=== PATIENT | male | born 1970 | race Caucasian/White ===

== ENCOUNTER → 2021-05-18 12:58 | Outpatient (BNVA) | payer BC, SELFPAY | PROVIDERS: PCP Internal Medicine; Visit Provider Nurse Practitioner ==

== ENCOUNTER → 2021-06-18 16:06 | Outpatient (BNVA) | payer BC, SELFPAY | PROVIDERS: PCP Internal Medicine; Visit Provider Nurse Practitioner ==

== ENCOUNTER → 2021-07-06 16:09 | Outpatient (BNVA) | payer BC, SELFPAY | PROVIDERS: PCP Internal Medicine; Visit Provider Nurse Practitioner ==

== ENCOUNTER → 2021-08-06 15:48 | Outpatient (BNVA) | payer BC, SELFPAY | PROVIDERS: PCP Internal Medicine; Visit Provider Nurse Practitioner ==

== ENCOUNTER → 2021-08-25 15:00 | Outpatient (BNVA) | payer BC, SELFPAY | PROVIDERS: PCP Family Medicine; Visit Provider Nurse Practitioner Family ==

== ENCOUNTER → 2021-09-14 16:05 | Outpatient (BNVA) | payer BC, SELFPAY | PROVIDERS: PCP Family Medicine; Visit Provider Nurse Practitioner ==

== ENCOUNTER 2021-09-16 | Outpatient (REF) | payer BC, SELFPAY ==
[2021-09-21 11:08] LABS: FIT Int Ctl YES; FIT1 NEGATIVE (NEGATIVE); FIT2 NEGATIVE (NEGATIVE)
== END 2021-09-16 00:01 | disposition home or self-care (01) ==
LOC: HO.LNP
PROVIDERS: Visit Provider Nurse Practitioner
DX: Z12.11 Encounter for screening for malignant neoplasm of colon (principal)
CPT/HCPCS: 82274

== ENCOUNTER → 2021-09-30 16:18 | Outpatient (BNVA) | payer BC, SELFPAY | PROVIDERS: PCP Family Medicine; Referring Provider Family Medicine; Visit Provider Nurse Practitioner | DX: Z13.89 Encounter for screening for other disorder (principal) ==

== ENCOUNTER → 2021-11-11 16:11 | Outpatient (BNVA) | payer BC, SELFPAY | PROVIDERS: PCP Family Medicine; Referring Provider Family Medicine; Visit Provider Nurse Practitioner | DX: Z13.89 Encounter for screening for other disorder (principal) ==

== ENCOUNTER → 2021-11-24 15:25 | Outpatient (BNVA) | payer BC, SELFPAY | PROVIDERS: PCP Family Medicine; Visit Provider Nurse Practitioner Family | DX: G20 Parkinson's disease (principal) ==

== ENCOUNTER 2022-01-05 12:50 | Outpatient (REF) | payer BC, SELFPAY ==
--- NOTE | 2022-01-05 12:55 | EEG_ITS ---
This is a 16-channel EEG with an EKG lead. The patient is reported awake during the tracing. Background EEG rhythm is about 10 hertz, 5 to 30 microvolt posteriorly and lower amplitude fast anteriorly. Some lead and muscle artifacts are noted. Photic stimulation is unremarkable. Hyperventilation is not performed. Cardiac lead does not reveal any significant abnormality. No sharp wave spikes or paroxysmal tendency noted. IMPRESSION: No significant abnormality noted on this EEG. MD BRUCE Morgan/ERIC / [id number]
== END 2022-01-05 12:51 | disposition home or self-care (01) ==
LOC: HO.NEURO 12:50
PROVIDERS: PCP Family Medicine; Visit Provider Nurse Practitioner Family
DX: R55 Syncope and collapse (principal); W19.XXXA Unspecified fall, initial encounter
CPT/HCPCS: 95816

== ENCOUNTER → 2022-02-14 14:25 | Outpatient (BNVA) | payer BC, SELFPAY | PROVIDERS: PCP Family Medicine; Referring Provider Nurse Practitioner; Visit Provider Internal Medicine | DX: R55 Syncope and collapse (principal) | CPT/HCPCS: 93005 ==

== ENCOUNTER → 2022-03-18 13:46 | Outpatient (REF) | payer BC, SELFPAY ==
--- NOTE | 2022-03-18 13:49 | CA_ITS ---
Transthoracic Echocardiogram Amended Patient (Last, First, Middle): Rakan Grijalva, Gender: Male Date of : 1970 Age: 52 Procedure Date: 03/18/2022 Procedure Type: Transthoracic Echocardiogram Location: OP Height: 167.64 cm Weight: 67.59 kg BSA: 1.76 m2 Heart Rate: 81 bpm BP: 130 / 90 mmHg Inside Sales Territory Manager: KOLE [place] MD: Monroe Mclean MD Sewing Inspector: Jaya Perez MD Symptoms: R55 - Syncope and collapse Study Quality: Fair ECG Rhythm: Sinus Conclusions: - 1. Mildly reduced LV systolic function with LVEF of 45-50% with grade 1 diastolic dysfunction 2. Normal cardiac valvular Doppler 3. No gross pericardial effusion Findings Left Ventricle Normal left ventricular size and systolic function. The visually estimated ejection fraction is between 45-50%. Spectral Doppler is indicative of an impaired relaxation filling pattern. E/E prime ratio is <8, consistent with normal filling pressures. Evidence suggests grade I (mild) diastolic dysfunction. Peak GLS is -14.6%, which is reduced. Right Ventricle Normal right ventricular cavity size and systolic function. Atria The left atrium is normal in size. Interatrial shunt cannot be excluded. The right atrium is normal in size. Aortic Valve The aortic valve structure and function is likely normal. There is no aortic valve stenosis. There is no aortic valve regurgitation. Mitral Valve Likely normal mitral valve structure and function. There is trace mitral valve regurgitation. There is no mitral valve stenosis. Pulmonic Valve The pulmonic valve was not well visualized. Tricuspid Valve Likely normal tricuspid valve structure and function. Tricuspid regurgitation envelope is inadequate for calculation of right ventricular systolic pressure. Normal right atrial pressure. Great Vessels All visible segments of the aorta are normal in size. The pulmonary artery was not well visualized. Venous The inferior vena cava is normal in size and collapses greater than 50% with inspiration. Pericardium/Pleural There is no evidence of pericardial effusion. Prior Study Comparison No prior study available for comparison. Recommendations, Care & Conclusions Recommend contrast in the future to improve endocardial definition. Measurements 2D Linear Measurements IVSd: 0.96 0.6-0.9/0.6-1.0 cm LVIDd: 3.69 3.9-5.3/4.2-5.9 cm LVIDd Index: 2.10 2.4-3.2/2.2-3.1 cm/m2 LVIDs: 2.42 2.0-3.6 cm LVPWd: 0.89 0.7-1.1 cm LA Diam: 3.60 2.7-3.8/3.0-4.0 cm LAIDs Index: 2.05 1.5-2.3 cm/m2 LV Mass: 124.68 67-162/88-224 g LV Mass Index: 70.84 43-95/49-115 g/m2 LVOT Diam: 2.00 3.0+(-)1.3 cm 2D Volumes LA Vol: 24.00 2D Systolic Function EF 4C: 40.80 >55% EF 2C: 49.10 >55% Mitral Valve MV Pk E: 0.62 MV PK A: 0.76 MV Decel Time: 224.00 E/A: 0.80 E'Lateral: 7.94 E'Medial: 5.77 E/E' Med: 10.70 E/E' Lat: 7.80 PHT: 66.00 MVA PHT: 3.33 Decel [place]: 2.75 Aortic Valve AoV Pk Tereso: 1.16 AoV Mn Tereso: 0.84 AoV VTI: 0.21 AoV Pk Grad: 5.00 Aov Mn Grad: 3.00 JENN Cont.VTI: 2.56 LVOT LVOT Pk Tereso: 0.92 LVOT Mn Tereso: 0.68 LVOT VTI: 0.17 LVOT Pk Grad: 3.00 LVOT Mn Grad: 2.00 LVOT Diam: 2.00 LVOT Area: 3.14 Diastolic Function MV Pk E: 0.62 MV Pk A: 0.76 E/A: 0.80 E'Medial: 5.77 E/E' Med: 10.70 E' Laterial: 7.94 E/E' Lat: 7.80 Right Ventricle TAPSE (mm): 18.90 TVS' Tereso: 8.70 Tricuspid Valve RA Press: 3.00 Great Vessels Aorta Sinus of Valsalva: 3.20 2.0-3.5 cm Ao Asc: 3.00 2.1-3.4 cm Pulmonary Valve PV Pk Tereso: 0.83 Peak PV Grad: 3.00 Updated in Other Vendor System with Status of Final Jaya Perez MD electronically signed on 03/20/2022 10:21:20 AM with status of Final
== END ==
LOC: HO.CARD 13:46
PROVIDERS: Visit Provider Internal Medicine
DX: R55 Syncope and collapse (principal)
CPT/HCPCS: 93306; 93356

== ENCOUNTER 2022-05-02 15:42 | Outpatient (REF) | payer BC, SELFPAY ==
[2022-05-02 15:53] LABS: MANUAL DIFF FLAG NO
[2022-05-02 16:12] LABS: Basophils Percent Auto 0.5 % (0-2); Eosinophils Absolute Auto 0.3 X10*3/uL (0.0-0.4); Hematocrit 37.5 % (42.0-52.0); Hemoglobin 12.6 g/dl (14.0-18.0); Imm Gran Abs Auto 0.03 X10*3/uL (0.00-0.03); Imm Gran Pct Auto 0.4 % (0.0-0.4); Lymphocytes Absolute Auto 2.7 X10*3/uL (1.2-4.9); Lymphocytes Percent Auto 32.1 % (20-40); Mean Corpuscular HGB Conc 33.6 g/dl (31.0-36.0); Mean Corpuscular Hemoglobin 26.6 pg (27.0-33.0); Mean Corpuscular Volume 79.3 fL (80.0-98.0); Mean Platelet Volume 8.9 fL (9.4-12.4); Monocytes Absolute Auto 0.8 X10*3/uL (0.1-1.2); Monocytes Percent Auto 8.9 % (2-11); Neutrophils Absolute Auto 4.6 x10*3/uL (2.0-8.3); Neutrophils Percent Auto 54.1 % (45-73); Platelet Count 399 X10*3/uL (160-400); Red Blood Count 4.73 X10*6/uL (4.60-5.80); Red Cell Distribution Width 15.7 % (11.0-16.0); White Blood Count 8.4 X10*3/uL (4.8-10.8)
[2022-05-02 16:30] LABS: Alanine Aminotransferase 11 U/L (0-40); Albumin Level 4.7 g/dL (3.5-5.0); Alkaline Phosphatase 97 U/L (39-117); Anion Gap 16 (12-20); Aspartate Amino Transferase 16 U/L (5-37); Bilirubin Total 0.3 mg/dL (0.0-1.0); Blood Urea Nitrogen 10 mg/dL (9-16); Carbon Dioxide 27 mmol/L (22-29); Chloride 99 mmol/L (96-108); Estimated Glomerular Filt Rate > 60; Glucose Random 91 mg/dL (60-115); Iron 74 mcg/dL (45-160); Percent Iron Saturation 18 % (15-50); Potassium 3.8 mmol/L (3.3-5.1); Sodium 138 mmol/L (135-145); Total Iron Binding Capacity 403 mcg/dL (228-428); Total Protein 7.4 g/dL (6.5-8.0); Unsaturated Iron Binding 329 ug/dL
[2022-05-02 16:52] LABS: Ferritin 39 ng/mL (20-250)
== END 2022-05-02 15:43 | disposition home or self-care (01) ==
LOC: HO.LAB 15:42
PROVIDERS: PCP Family Medicine; Visit Provider Nurse Practitioner Family
DX: R53.83 Other fatigue (principal); U09.9 Post COVID-19 condition, unspecified; D64.9 Anemia, unspecified
CPT/HCPCS: 36415; 80053; 82728; 83540; 85025

== ENCOUNTER → 2022-07-12 12:57 | Outpatient (BNVA) | payer BC, SELFPAY | PROVIDERS: PCP Family Medicine; Visit Provider Nurse Practitioner | DX: K21.9 Gastro-esophageal reflux disease without esophagitis (principal) ==

== ENCOUNTER → 2022-08-01 15:32 | Outpatient (BNVA) | payer BC, SELFPAY | PROVIDERS: PCP Family Medicine; Visit Provider Nurse Practitioner Family | DX: Z13.89 Encounter for screening for other disorder (principal) ==

== ENCOUNTER → 2022-09-21 15:46 | Outpatient (REF) | payer BC, SELFPAY ==
--- NOTE | 2022-09-21 15:55 | CA_ITS ---
Transthoracic Echocardiogram Patient (Last, First, Middle): Rakan Grijalva, Gender: Male Date of : 1970 Age: 52 Procedure Date: 09/21/2022 Procedure Type: Transthoracic Echocardiogram Location: OP Height: 170.18 cm Weight: 69.4 kg BSA: 1.80 m2 Heart Rate: bpm BP: 122 / 68 mmHg School Bus Attendant: Referring MD: Monroe Mclean MD Symptoms: I42.9 - Cardiomyopathy, unspecified Study Quality: Adequate ECG Rhythm: Sinus Conclusions: - The left ventricular systolic function is low normal. The visually estimated ejection fraction is between 50-55% (in some views, appears 55-60%). Findings Procedure Information Contrast agent, definity, is being given per protocol without apparent complications. Left Ventricle Normal left ventricular cavity size. There is normal left ventricular wall thickness. The left ventricular systolic function is low normal. The visually estimated ejection fraction is between 50-55%. There is no evidence of regional wall motion abnormalities. LV peak GLS -15.1%. Right Ventricle Normal right ventricular cavity size and systolic function. Venous The inferior vena cava was not well visualized. The inferior vena cava is normal in size. Prior Study Comparison Changes noted compared to prior study dated: 03/26/2022. Possibly slightly higher LVEF, but could also be inter-observer variability. Measurements 2D Linear Measurements IVSd: 0.75 0.6-0.9/0.6-1.0 cm LVIDd: 4.14 3.9-5.3/4.2-5.9 cm LVIDd Index: 2.30 2.4-3.2/2.2-3.1 cm/m2 LVIDs: 2.89 2.0-3.6 cm LVPWd: 0.86 0.7-1.1 cm LV Mass: 123.81 67-162/88-224 g LV Mass Index: 68.79 43-95/49-115 g/m2 LVOT Diam: 2.00 3.0+(-)1.3 cm 2D Systolic Function EF 4C: 52.10 >55% EF 2C: 60.40 >55% EF BiP: 52.10 >55% LVOT LVOT Pk Tereso: 0.93 LVOT Mn Tereso: 0.61 LVOT VTI: 0.19 LVOT Pk Grad: 3.00 LVOT Mn Grad: 2.00 LVOT Diam: 2.00 LVOT Area: 3.14 Right Ventricle TAPSE (mm): 25.00 TVS' Tereso: 10.00 Updated in Other Vendor System with Status of Final Monroe Mclean MD electronically signed on 09/23/2022 12:24:49 PM with status of Final
== END ==
LOC: HO.CARD 15:46
PROVIDERS: PCP Family Medicine; Visit Provider Internal Medicine
DX: I42.9 Cardiomyopathy, unspecified (principal)
CPT/HCPCS: 93308; 93356; Q9957

== ENCOUNTER → 2022-10-07 16:06 | Outpatient (BNVA) | payer BC, SELFPAY | PROVIDERS: PCP Family Medicine; Visit Provider Nurse Practitioner | DX: Z13.89 Encounter for screening for other disorder (principal) ==

== ENCOUNTER → 2022-11-28 15:30 | Outpatient (BNVA) | payer BC, SELFPAY | PROVIDERS: PCP Family Medicine; Visit Provider Nurse Practitioner Family ==

== ENCOUNTER 2023-04-04 16:04 | Outpatient (AMB) | payer BC, SELFPAY ==
[2023-04-04 16:07] VITALS: BP 127/75; PULSE 88; BMI 26.2
--- NOTE | 2023-04-04 16:07 | MHC.OFFVIS ---
Intake Vital Signs 04/04/23 16:07 Height 5 ft 7 in Weight 167 lb 8.821 oz BMI 26.2 BP 127/75 Blood Pressure Location Lt brachial Position Sitting Pulse 88 Intake Visit Reasons: 6month f/u Intake Note: Rakan presents in the office as a 6 month follow up for GERD and CIC. CC: Patient reports doing well and denies having any new GI concerns today. 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 He continues to do well. He has gained almost 10 lbs since we first met!! He continues on the Reglan 10 mg 4 times a day along with the Linzess 290. He has not needed to use the hyoscyamine. His appetite is good any has an almost normal bowel schedule and he is extremely happy with this. Whenever was causing his vomiting at the prior visit seems to have subsided and could have been a passing GI virus. ROV 6 mos. (2) GERD (gastroesophageal reflux disease): Code(s): K21.9 - Gastro-esophageal reflux disease without esophagitis (3) IBS (irritable bowel syndrome): Code(s): K58.9 - Irritable bowel syndrome without diarrhea (4) Chronic idiopathic constipation: Code(s): K59.04 - Chronic idiopathic constipation Medications: Refilled linaclotide (Linze ss) 290 mcg PO QAM 90 days 90 caps 3RF K59.04 - Chronic i diopathic constipa tion metoclopramide HCl (Reglan) 10 mg PO QIDACHS 360 tabs 2RF K59.04 - Chronic i diopathic constipa tion, K59.9 - Func tional intestinal disorder, unspecif ied omeprazole 20 mg PO BID 90 d ays 180 caps 3RF K21.9 - Gastro-eso phageal reflux dis ease without esoph agitis TODAY'S VISIT He is here today with his as usual. She is quite supportive. He continues to do well. He continues on the Reglan 10 mg 4 times a day along with the Linzess 290. He has not needed to use the hyoscyamine. The omeprazole 20 mg twice a day continues to control his GERD. ROV 6 mos. [facility] Medical History Benign tumor of skin of umbilicus Anemia Hypersomnia Atypical parkinsonism Surgical History Hx of colonoscopy History of esophagogastroduodenoscopy (EGD) Previous back surgery H/O: knee surgery Family History Mother Asthma Tremors of nervous system Arthritis Father Heart disease Gout Type II diabetes mellitus Brother Thyroid disease Parkinsons Gout Type II diabetes mellitus Paternal Aunt Cancer Paternal Grandfather Cancer Paternal Grandmother Cancer Sister Asthma Bipolar 1 disorder Social History Household Members: Spouse Alcohol intake: never Patient Tobacco Use Status: Former Tobacco user Tobacco use type: Smokeless Tobacco e-Cigarette/Vaping Use: Currently Using Review of Systems Const Denies fatigue, Denies fever(s), Denies night sweats, Denies poor appetite and Denies weight loss ENT Reports Normal hearing present, Denies dental pain, Denies dysphagia, Denies hearing loss, Denies mouth pain, Denies odynophagia, Reports disequilibrium, Denies throat swelling, Denies tongue swelling and Reports other (Dentition adequate) Card Reports no additional complaints Resp Reports no additional complaints GI Denies abdominal pain, Denies melena, Reports bloating, Denies hematochezia, Reports constipation, Denies GI cramping, Denies dysphagia, Denies excessive flatus, Denies early satiety, Reports heartburn, Denies diarrhea, Reports nausea, Denies odynophagia, Denies vomiting and Denies hematemesis Musc Reports stiffness Skin/Breast Denies pruritus, Denies lesions, Denies rash and Denies jaundice Neuro Reports Normal hearing present, Denies Abnormal speech present, Reports tremor(s) and Reports disequilibrium Endo Denies fatigue Aller/Immun Denies throat swelling and Denies tongue swelling Physical Exam Vital Signs: Last Vital Signs Pulse 88 04/04/23 16:07 BP 127/75 04/04/23 16:07 BMI result Body Mass Index 26.2 Const General: cooperative, no acute distress, well developed and well groomed Nutritional Appearance: average body habitus and well nourished Orientation/consciousness: oriented to person, oriented to place and oriented to time Limitations: No language barrier HEENT Head: Yes normocephalic and Yes atraumatic Eyes General: appearance normal, both eyes and all related structures Pupils: Equal, round and reactive pupils present Neck Neck: Yes normal visual inspection and Yes no lymphadenopathy Thyroid: Thyroid normal Resp Effort & Inspection: normal respiratory effort and able to speak in complete sentences Auscultation: clear to auscultation bilaterally Cardio Rate: regular rate Rhythm: regular rhythm Heart sounds: Normal, physiologic split S2 sound present Peripheral pulses: radial pulses present and posterior tibial pulses present GI Inspection: No distended and No Abdominal panniculus present Palpation (GI): Soft to palpation, nontender, no guarding, not rigid and No hepatosplenomegaly present Percussion: Yes normal to percussion Auscultation: normal bowel sounds Rectal Exam - Male: Yes deferred Skin General skin exam: no rashes or lesions noted, turgor normal, skin not dry, no jaundice, No spider nevi and no striae Rashes: no rashes Nails: normal Neuro General: oriented to person, oriented to place and oriented to time Cranial nerves: Yes Equal, round and reactive pupils present and Yes Normal hearing present Speech: No Abnormal speech present Extrem General: Yes normal to inspection, No clubbing, No cyanosis and No edema Psych Appearance: grossly normal and well kempt Mental Status: mental status grossly normal Speech and movement: Normal speech and movement present Affect: normal affect Attitude: cooperative Thought process: Normal thought process present and not confabulating Thought content: Normal thought content present Insight: Fair insight present (Psych) Judgement: Fair judgement present (Psych) Assessment & Plan Assessment & Plan (1) Chronic idiopathic constipation: Code(s): K59.04 - Chronic idiopathic constipation Plan: He is here today with his as usual. She is quite supportive. He continues to do well. He continues on the Reglan 10 mg 4 times a day along with the Linzess 290. He has not needed to use the hyoscyamine. The omeprazole 20 mg twice a day continues to control his GERD. ROV 6 mos. (2) Small bowel motility disorder: Code(s): K59.9 - Functional intestinal disorder, unspecified (3) IBS (irritable bowel syndrome): Code(s): K58.9 - Irritable bowel syndrome without diarrhea (4) GERD (gastroesophageal reflux disease): Code(s): K21.9 - Gastro-esophageal reflux disease without esophagitis (5) Parkinsonism: Comment: likely secondary to TCE exposure Negative Rocío scan. Code(s): G20 - Parkinson's disease Medications: New metoclopramide HCl (Reglan) 10 mg PO QIDACHS 120 tabs 6RF K59.9 - Functional intestinal disorder, unspecified, K59.04 - Chronic idiopathic constipation Refilled linaclotide (Linzess) 290 mcg PO QAM 90 caps 3RF 90 days K59.04 - Chronic idiopathic constipation omeprazole 20 mg PO BID 180 caps 3RF 90 days K21.9 - Gastro-esophageal reflux disease without esophagitis Coding Level of Care Code Est Pt Level 3 (06853) Diagnoses Chronic idiopathic constipation K59.04 Small bowel motility disorder K59.9 IBS (irritable bowel syndrome) K58.9 GERD (gastroesophageal reflux disease) K21.9 Parkinsonism G20
== END 2023-04-06 07:59 | disposition home or self-care (01) ==
PROVIDERS: PCP Family Medicine; Visit Provider Nurse Practitioner
DX: K59.04 Chronic idiopathic constipation (principal); K59.9 Functional intestinal disorder, unspecified; K58.9 Irritable bowel syndrome, unspecified; K21.9 Gastro-esophageal reflux disease without esophagitis; G20 Parkinson's disease
CPT/HCPCS: 99213

== ENCOUNTER → 2023-04-04 16:04 | Outpatient (BNVA) | payer BC, SELFPAY | PROVIDERS: PCP Family Medicine; Visit Provider Nurse Practitioner ==

== ENCOUNTER 2023-05-02 15:20 | Outpatient (AMB) | payer BC, SELFPAY ==
--- NOTE | 2023-05-02 15:24 | A.OFFVIS_ITS ---
Intake Vital Signs 05/02/23 15:26 Weight 169 lb 8 oz BP 110/74 Blood Pressure Location Lt brachial Pulse 96 Pulse Source Pulse Oximeter Pulse Oximetry (%) 98 Oxygen Delivery Method Room Air Intake Visit Reasons: 5M follow up-Confirmed Intake Note: Fup Hypersomnia/Parkinsonism , pt states nothing has changed since last OV Allergies Penicillins Allergy (Mild, Verified 05/02/23 15:29) Unknown Medication List - Last Reconciled 05/02/23 by ROSA Foster armodafinil 250 mg PO QAM 90 days carbidopa-levodopa 25-100 mg 1 tab QID, may take 2 tabs qhs orally, max 6 tabs per day; 90 days cholecalciferol (vitamin D3) 25 mcg PO DAILY diphenhydramine HCl (Benadryl) 25 mg PO BEDTIME PRN duloxetine 60 mg PO DAILY 90 days duloxetine (Cymbalta) 30 mg PO DAILY 90 days hyoscyamine sulfate 0.125 mg sublingual QID PRN linaclotide (Linzess) 290 mcg PO QAM 90 days metoclopramide HCl (Reglan) 10 mg PO QIDACHS omeprazole 20 mg PO BID 90 days rasagiline 1 mg PO DAILY 90 days HPI HPI Comments History of Present Illness Details 53-yr-old male presents for f/u visit, a ccompanied by his . Is taking CD-LD 2 tabs qam and then 1 tab TID. He is now noticing when it is working. Ind w/ ADLs. Maybe a bit more difficulty doing buttons or fine motor skills. Tremors stable. No falls. He feels he is more prone to losing balance to the right or forward. No recent syncope. GI s/s and Constipation are stable on Linzess- has daily BM. He has been taking his Hyoscyamine very rarely. His hot flashes have not been as bad. Seem to be better when CD-LD is effective. He has good and bad days in terms of his energy level. Anxiety- stable. ? PFSH Medical History Benign tumor of skin of umbilicus Anemia Hypersomnia Atypical parkinsonism Surgical History Hx of colonoscopy History of esophagogastroduodenoscopy (EGD) Previous back surgery H/O: knee surgery Family History Mother Asthma Tremors of nervous system Arthritis Father Heart disease Gout Type II diabetes mellitus Brother Thyroid disease Parkinsons Gout Type II diabetes mellitus Paternal Aunt Cancer Paternal Grandfather Cancer Paternal Grandmother Cancer Sister Asthma Bipolar 1 disorder Social History Household Members: Spouse Alcohol intake: never Patient Tobacco Use Status: Former Tobacco user Tobacco use type: Smokeless Tobacco e-Cigarette/Vaping Use: Currently Using Review of Systems Const All systems reviewed & are unremarkable except as noted in HPI and below Physical Exam Vital Signs: Last Vital Signs Pulse 96 05/02/23 15:26 BP 110/74 05/02/23 15:26 Pulse Ox 98 05/02/23 15:26 Oxygen Delivery Method Room Air 05/02/23 15:26 Const General: cooperative and no acute distress Resp Effort & Inspection: normal respiratory effort and able to speak in complete sentences Neuro Other: Expression: Mild decreased expression Voice: Soft Tremor: Mild BUE R > L postural tremor Tone: Mild BUE tone. Dyskinesia: None FFM: Mild bradykinesia Foot taps: Mild bradykinesia Gait: Slight stoop, decreased arm swing, short steps, steady gait Psych: Pleasant affect General: patient oriented x3 Assessment & Plan Assessment & Plan (1) Parkinsonism: Comment: likely secondary to TCE exposure Negative Rocío scan. Code(s): G20 - Parkinson's disease (2) Hypersomnia: Code(s): G47.10 - Hypersomnia, unspecified (3) DRE (generalized anxiety disorder): Code(s): F41.1 - Generalized anxiety disorder Plan Continue Cymbalta 90 mg qd- anxiety is significantly reduced since he started Cy mbalta. Continue Azilect 1 mg qd. Continue Sinemet 25-100 mg 1 tab qid- may take 2 tabs qhs. Continue Armodafinil 250mg qam. Try to not sleep in too late in am, but may continue early timed daytime naps. Continue regular physical activity. f/u in 4-5 months or sooner prn. Medications: Refilled armodafinil 250 mg PO QAM 90 days 90 tabs 1RF carbidopa-levodopa 25-100 mg 1 tab QID, may take 2 tabs qhs orally, max 6 tabs per day; 90 days 540 tabs 3RF Coding Level of Care Code Est Pt Level 4 (15297) Diagnoses Parkinsonism G20 Hypersomnia G47.10 DRE (generalized anxiety disorder) F41.1
[2023-05-02 15:26] VITALS: BP 110/74; PULSE 96; O2SAT 98
== END 2023-05-02 16:12 | disposition home or self-care (01) ==
PROVIDERS: Visit Provider Nurse Practitioner Family
DX: G20.C Parkinsonism, unspecified (principal); G47.10 Hypersomnia, unspecified; F41.1 Generalized anxiety disorder
CPT/HCPCS: 99214

== ENCOUNTER → 2023-05-02 15:20 | Outpatient (BNVA) | payer BC, SELFPAY | PROVIDERS: Visit Provider Nurse Practitioner Family | DX: K58.9 Irritable bowel syndrome, unspecified (principal); K59.9 Functional intestinal disorder, unspecified; K59.04 Chronic idiopathic constipation ==

== ENCOUNTER → 2023-09-07 14:56 | Outpatient (REF) | payer BC, SELFPAY ==
--- NOTE | 2023-09-07 15:12 | CA_ITS ---
Transthoracic Echocardiogram Patient (Last, First, Middle): Rakan Grijalva, Gender: Male Date of : 1970 Age: 53 Procedure Date: 09/07/2023 Procedure Type: Transthoracic Echocardiogram Location: OP Height: 167.64 cm Weight: 76.2 kg BSA: 1.86 m2 Heart Rate: bpm BP: 128 / 86 mmHg Bucket Operator: TO Referring MD: Magali Montenegro NP Symptoms: I42.9 - Cardiomyopathy, unspecified Study Quality: Fair/Contrast Conclusions: - 1. Normal LV ejection fraction of 60 65% with grade 1 diastolic dysfunction 2. Normal cardiac valvular Doppler 3. No gross pericardial effusion Findings Procedure Information Contrast agent, definity, is being given per protocol without apparent complications. Left Ventricle Normal left ventricular size, thickness, and systolic function. The visually estimated ejection fraction is between 60-65%. Spectral Doppler is indicative of an impaired relaxation filling pattern. E/E prime ratio is <8, consistent with normal filling pressures. Evidence suggests grade I (mild) diastolic dysfunction. There is mild septal asymmetric hypertrophy. Right Ventricle Normal right ventricular cavity size and systolic function. Atria Both atria are normal in size. Interatrial shunt cannot be excluded. Aortic Valve The aortic valve structure and function is likely normal. There is no aortic valve stenosis. There is no aortic valve regurgitation. Mitral Valve Normal mitral valve structure and function. There is trace mitral valve regurgitation. There is no mitral valve stenosis. Pulmonic Valve The pulmonic valve is likely normal. Tricuspid Valve Normal tricuspid valve structure. Tricuspid regurgitation envelope is inadequate for calculation of right ventricular systolic pressure. Normal right atrial pressure. Great Vessels The pulmonary artery was not well visualized. There is no dilatation of the ascending aorta measuring 3.20 cm. Venous The inferior vena cava is normal in size and collapses greater than 50% with inspiration. Pericardium/Pleural There is no evidence of pericardial effusion. Prior Study Comparison No significant change compared to prior study dated: 09/21/2022. Measurements 2D Linear Measurements IVSd: 1.22 0.6-0.9/0.6-1.0 cm LVIDd: 3.91 3.9-5.3/4.2-5.9 cm LVIDd Index: 2.10 2.4-3.2/2.2-3.1 cm/m2 LVIDs: 2.29 2.0-3.6 cm LVPWd: 0.90 0.7-1.1 cm LA Diam: 3.20 2.7-3.8/3.0-4.0 cm LAIDs Index: 1.72 1.5-2.3 cm/m2 LV Mass: 165.63 67-162/88-224 g LV Mass Index: 89.05 43-95/49-115 g/m2 LVOT Diam: 2.20 3.0+(-)1.3 cm 2D Systolic Function EF 4C: 61.80 >55% Mitral Valve MV Pk E: 0.64 MV PK A: 0.52 MV Decel Time: 152.00 E/A: 1.20 E'Lateral: 8.59 E'Medial: 6.64 E/E' Med: 9.60 E/E' Lat: 7.40 PHT: 44.00 MVA PHT: 5.00 Decel [place]: 4.21 Aortic Valve AoV Pk Tereso: 1.35 AoV Mn Tereso: 0.91 AoV VTI: 0.24 AoV Pk Grad: 7.00 Aov Mn Grad: 4.00 JENN Cont.VTI: 2.48 LVOT LVOT Pk Tereso: 0.91 LVOT Mn Tereso: 0.58 LVOT VTI: 0.15 LVOT Pk Grad: 3.00 LVOT Mn Grad: 2.00 LVOT Diam: 2.20 LVOT Area: 3.80 Diastolic Function MV Pk E: 0.64 MV Pk A: 0.52 E/A: 1.20 E'Medial: 6.64 E/E' Med: 9.60 E' Laterial: 8.59 E/E' Lat: 7.40 Right Ventricle TAPSE (mm): 24.30 TVS' Tereso: 13.20 Tricuspid Valve RA Press: 3.00 Great Vessels Aorta Sinus of Valsalva: 3.41 2.0-3.5 cm Ao Asc: 3.20 2.1-3.4 cm Ao Arch: 2.70 Updated in Other Vendor System with Status of Final Jaya Perez MD electronically signed on 09/08/2023 2:02:53 PM with status of Final
== END ==
LOC: HO.CARD 14:56
PROVIDERS: PCP Internal Medicine; Visit Provider Nurse Practitioner
DX: I42.9 Cardiomyopathy, unspecified (principal)
CPT/HCPCS: 93306; Q9957

== ENCOUNTER → 2023-09-07 15:12 | Outpatient (BNV) | payer BC, SELFPAY | PROVIDERS: PCP Internal Medicine; Visit Provider Internal Medicine Cardiovascular Disease | DX: I42.9 Cardiomyopathy, unspecified (principal) | CPT/HCPCS: 93306 ==

== ENCOUNTER 2023-09-26 15:04 | Outpatient (AMB) | payer BC, SELFPAY ==
[2023-09-26 15:13] VITALS: BP 130/78; PULSE 78; BMI 26.2
--- NOTE | 2023-09-26 15:13 | MHC.OFFVIS ---
Intake Vital Signs 09/26/23 15:13 Height 5 ft 7 in Weight 167 lb 8.821 oz BMI 26.2 BP 130/78 Blood Pressure Location Lt brachial Position Sitting Pulse 78 Pulse Source Monitor Intake Visit Reasons: F/Up and echo repeat 1 year Intake Note: follow up after ECHO Allergies Penicillins Allergy (Mild, Verified 09/26/23 15:36) Unknown Medication List - Last Reconciled 09/26/23 by Magali Montenegro NP armodafinil 250 mg PO QAM 90 days carbidopa-levodopa 25-100 mg 1 tab QID, may take 2 tabs qhs orally, max 6 tabs per day; 90 days cholecalciferol (vitamin D3) 25 mcg PO DAILY diphenhydramine HCl (Benadryl) 25 mg PO BEDTIME PRN duloxetine 60 mg PO DAILY 90 days duloxetine (Cymbalta) 30 mg PO DAILY 90 days hyoscyamine sulfate 0.125 mg sublingual QID PRN linaclotide (Linzess) 290 mcg PO QAM 90 days metoclopramide HCl (Reglan) 10 mg PO QIDACHS omeprazole 20 mg PO BID 90 days rasagiline 1 mg PO DAILY 90 days HPI HPI Comments History of Present Illness Details 53-year-old male presents today for a follow-up after echocardiogram. He presents with his . He reports he has been doing well. Denies any chest pains, shortness of breath, dizziness, syncope, or palpitations. [facility] Medical History Incomplete left bundle branch block Benign tumor of skin of umbilicus Anemia Hypersomnia Atypical parkinsonism Surgical History Hx of colonoscopy History of esophagogastroduodenoscopy (EGD) Previous back surgery H/O: knee surgery Family History Mother Asthma Tremors of nervous system Arthritis Father Heart disease Gout Type II diabetes mellitus Brother Thyroid disease Parkinsons Gout Type II diabetes mellitus Paternal Aunt Cancer Paternal Grandfather Cancer Paternal Grandmother Cancer Sister Asthma Bipolar 1 disorder Social History Household Members: Spouse Alcohol intake: never Patient Tobacco Use Status: Former Tobacco user Tobacco use type: Smokeless Tobacco e-Cigarette/Vaping Use: Currently Using Review of Systems Const Denies weakness ENT Denies dizziness Card Denies chest pain, Denies chest pain with activity, Denies syncope, Denies rapid heart rate, Denies pedal edema, Denies edema, Denies leg edema, Denies lightheadedness, Denies palpitations, Denies dyspnea, Denies dyspnea on exertion and Denies orthopnea Resp Denies cough, Denies dyspnea and Denies dyspnea on exertion GI Denies hematochezia and Denies change in stool character Musc Denies abnormal gait, Denies muscle cramps, Denies muscle weakness, Denies numbness, Denies radiating pain into limb and Denies tingling Neuro Denies abnormal gait, Denies dizziness, Denies syncope, Denies numbness, Denies tingling and Denies weakness Endo Denies palpitations Physical Exam Vital Signs: Last Vital Signs Pulse 78 09/26/23 15:13 BP 130/78 09/26/23 15:13 BMI result Body Mass Index 26.2 Office Procedures EKG Details: EKG today. Normal Sinus Rhyth,. Nonspecific intraventricular conduction delay. ST & T wave abnormality. Rate 74ms,. [id number], Complete Assessment & Plan Assessment & Plan (1) Cardiomyopathy: Code(s): I42.9 - Cardiomyopathy, unspecified (2) Incomplete left bundle branch block: Code(s): I44.7 - Left bundle-branch block, unspecified (3) Syncope: Code(s): R55 - Syncope and collapse Plan Echocardiogram showed EF of 60-65%. No aortic stenosis, normal left ventricle size and thickness. Improvement in EF from 50-55% from prior year. Reports no syncope or near syncope. Incomplete left bundle branch block on EKG today. New finding. Will order stress test for ischemic evaluation. Patient agrees to plan and is not claustrophobic. Orders: Orders CA lexiscan stress w lily 09/26/23 I44.7 - Left bundle-branch block, unspecified NM cardiolite stress test 09/26/23 I44.7 - Left bundle-branch block, unspecified Coding Level of Care Code Est Pt Level 4 (88195) Diagnoses Cardiomyopathy I42.9 Incomplete left bundle branch block I44.7 Syncope R55 CPT Codes EKG - CPT: 18676-[id number], Complete ([id number])
== END 2023-09-26 15:51 | disposition home or self-care (01) ==
PROVIDERS: PCP Nurse Practitioner Family; Visit Provider Nurse Practitioner
DX: I42.9 Cardiomyopathy, unspecified (principal); I44.7 Left bundle-branch block, unspecified; R55 Syncope and collapse
CPT/HCPCS: 93010; 99214

== ENCOUNTER → 2023-09-26 15:04 | Outpatient (BNVA) | payer BC, SELFPAY | PROVIDERS: PCP Family Medicine; Visit Provider Nurse Practitioner | DX: I42.9 Cardiomyopathy, unspecified (principal); I44.7 Left bundle-branch block, unspecified; R55 Syncope and collapse | CPT/HCPCS: 93005 ==

== ENCOUNTER 2023-10-04 15:53 | Outpatient (AMB) | payer BC, SELFPAY ==
[2023-10-04 15:57] VITALS: BP 133/76; PULSE 88; BMI 26.3
--- NOTE | 2023-10-04 15:57 | A.OFFVIS_ITS ---
Intake Vital Signs 10/04/23 15:57 Height 5 ft 7 in Weight 167 lb 15.876 oz BMI 26.3 BP 133/76 Blood Pressure Location Lt brachial Position Sitting Pulse 88 Intake Visit Reasons: 6 mnth follow up Intake Note: Rakan presents in the office as a 6 month follow up for GERD and CIC. CC: Patient reports doing well and denies having any new GI concerns today. Risk Control Representative Required: No Allergies Penicillins Allergy (Mild, Verified 10/04/23 15:59) Unknown HPI 6 mnth follow up HPI Details Assessment & Plan (1) Chronic idiopathic constipation: Code(s): K59.04 - Chronic idiopathic constipation Plan: He is here today with his as usual. She is quite supportive. He continues to do well. He continues on the Reglan 10 mg 4 times a day along with the Linzess 290. He has not needed to use the hyoscyamine. The omeprazole 20 mg twice a day continues to control his GERD. ROV 6 mos. (2) Small bowel motility disorder: Code(s): K59.9 - Functional intestinal disorder, unspecified (3) IBS (irritable bowel syndrome): Code(s): K58.9 - Irritable bowel syndrome without diarrhea (4) GERD (gastroesophageal reflux diseas e): Code(s): K21.9 - Gastro-esophageal reflux disease without esophagitis (5) Parkinsonism: Comment: likely secondary to TCE exposure Negative Rocío scan. Code(s): G20 - Parkinson's disease Medications: New metoclopramide HCl (Reglan) 10 mg PO QIDACHS 1 20 tabs 6RF K59.9 - Functional intestinal disord er, unspecified, K 59.04 - Chronic id iopathic constipat ion Refilled linaclotide (Linze ss) 290 mcg PO QAM 90 caps 3RF 90 days K59.04 - Chronic i diopathic constipa tion omeprazole 20 mg PO BID 180 c aps 3RF 90 days K21.9 - Gastro-eso phageal reflux dis ease without esoph agitis TODAY'S VISIT He continues to do extremely well! He is even gained quite a bit of weight and gone up 2 pant sizes since I 1st started seeing him. The flip side/problem with this is that he is now has high cholesterol borderline diabetes. He is going to be going on fish oil and trying to modify his diet to control these conditions before he has to consider going on medication. He continues on the Reglan 10 mg 4 times a day along with the Linzess 290. He has not needed to use the hyoscyamine. The omeprazole 20 mg twice a day continues to control his GERD. Even says that his Parkinson's doctor feels that improving his nutrition has pushed back some of the progression of his symptoms so all over this is a success story. Return office visit in 6 months [facility] Medical History Incomplete left bundle branch block Benign tumor of skin of umbilicus Anemia Hypersomnia Atypical parkinsonism Surgical History Hx of colonoscopy History of esophagogastroduodenoscopy (EGD) Previous back surgery H/O: knee surgery Family History Mother Asthma Tremors of nervous system Arthritis Father Heart disease Gout Type II diabetes mellitus Brother Thyroid disease Parkinsons Gout Type II diabetes mellitus Paternal Aunt Cancer Paternal Grandfather Cancer Paternal Grandmother Cancer Sister Asthma Bipolar 1 disorder Social History Household Members: Spouse Alcohol intake: never Patient Tobacco Use Status: Former Tobacco user Tobacco use type: Smokeless Tobacco e-Cigarette/Vaping Use: Currently Using Review of Systems Const Denies fatigue, Denies fever(s), Denies night sweats, Denies poor appetite, Reports weight gain and Denies weight loss ENT Reports Normal hearing present, Denies dental pain, Denies dysphagia, Denies hearing loss, Denies mouth pain, Denies odynophagia, Denies throat swelling, Denies tongue swelling and Reports other (Dentition adequate) Card Reports no additional complaints Resp Reports no additional complaints GI Details: Denies abdominal pain, Denies melena, Denies bloating, Denies hematochezia, Reports constipation, Denies GI cramping, Denies dysphagia, Denies excessive flatus, Reports early satiety, Reports heartburn, Denies diarrhea, Denies nausea, Denies odynophagia, Denies vomiting and Denies hematemesis Skin/Breast Denies pruritus, Denies lesions, Denies rash and Denies jaundice Neuro Reports Normal hearing present and Denies Abnormal speech present Endo Denies fatigue Aller/Immun Denies throat swelling and Denies tongue swelling Physical Exam Vital Signs: Last Vital Signs Pulse 88 10/04/23 15:57 BP 133/76 10/04/23 15:57 BMI result Body Mass Index 26.3 Const General: cooperative, no acute distress, well developed and well groomed Nutritional Appearance: well nourished and overweight Orientation/consciousness: oriented to person, oriented to place and oriented to time Limitations: No language barrier HEENT Head: Yes normocephalic and Yes atraumatic Eyes General: appearance normal, both eyes and all related structures Pupils: Equal, round and reactive pupils present Neck Neck: Yes normal visual inspection and Yes no lymphadenopathy Thyroid: Thyroid normal Resp Effort & Inspection: normal respiratory effort and able to speak in complete sentences Auscultation: clear to auscultation bilaterally Cardio Rate: regular rate Rhythm: regular rhythm Heart sounds: Normal, physiologic split S2 sound present Peripheral pulses: radial pulses present and posterior tibial pulses present GI Inspection: No distended, No Abdominal panniculus present and Yes obesity Palpation (GI): Soft to palpation, nontender, no guarding, not rigid and No hepatosplenomegaly present Percussion: Yes normal to percussion Auscultation: normal bowel sounds Rectal Exam - Male: Yes deferred Skin General skin exam: no rashes or lesions noted, turgor normal, skin not dry, no jaundice, No spider nevi and no striae Rashes: no rashes Nails: normal Neuro General: oriented to person, oriented to place and oriented to time Cranial nerves: Yes Equal, round and reactive pupils present and Yes Normal hearing present Speech: No Abnormal speech present Extrem General: Yes normal to inspection, No clubbing, No cyanosis and No edema Psych Appearance: grossly normal and well kempt Mental Status: mental status grossly normal Speech and movement: Normal speech and movement present Affect: normal affect Attitude: cooperative Thought process: Normal thought process present and not confabulating Thought content: Normal thought content present Insight: Fair insight present (Psych) Judgement: Fair judgement present (Psych) Assessment & Plan Assessment & Plan (1) Chronic idiopathic constipation: Code(s): K59.04 - Chronic idiopathic constipation (2) Small bowel motility disorder: Code(s): K59.9 - Functional intestinal disorder, unspecified (3) GERD (gastroesophageal reflux disease): Code(s): K21.9 - Gastro-esophageal reflux disease without esophagitis (4) Parkinsonism: Comment: likely secondary to TCE exposure Negative Rocío scan. Code(s): G20 - Parkinson's disease Plan He continues to do extremely well! He is even gained quite a bit of weight and gone up 2 pant sizes since I 1st started seeing him. The flip side/problem with this is that he is now has high cholesterol borderline diabetes. He is going to be going on fish oil and trying to modify his diet to control these conditions before he has to consider going on medication. He continues on the Reglan 10 mg 4 times a day along with the Linzess 290. He has not needed to use the hyoscyamine. The omeprazole 20 mg twice a day continues to control his GERD. Even says that his Parkinson's doctor feels that improving his nutrition has pushed back some of the progression of his symptoms so all over this is a success story. Return office visit in 6 months Medications: Refilled metoclopramide HCl (Reglan) 10 mg PO QIDACHS 120 tabs 6RF K59.04 - Chronic idiopathic constipation, K59.9 - Functional intestinal disorder, unspecified linaclotide (Linzess) 290 mcg PO QAM 90 days 90 caps 6RF K59.04 - Chronic idiopathic constipation Coding Level of Care Code Est Pt Level 3 (10081) Diagnoses Chronic idiopathic constipation K59.04 Small bowel motility disorder K59.9 GERD (gastroesophageal reflux disease) K21.9 Parkinsonism G20
== END 2023-10-04 16:17 | disposition home or self-care (01) ==
PROVIDERS: PCP Family Medicine; Visit Provider Nurse Practitioner
DX: K59.04 Chronic idiopathic constipation (principal); K59.9 Functional intestinal disorder, unspecified; K21.9 Gastro-esophageal reflux disease without esophagitis; G20.C Parkinsonism, unspecified
CPT/HCPCS: 99213

== ENCOUNTER → 2023-10-04 15:53 | Outpatient (BNVA) | payer BC, SELFPAY | PROVIDERS: PCP Family Medicine; Visit Provider Nurse Practitioner ==

== ENCOUNTER 2023-10-06 15:20 | Outpatient (AMB) | payer BC, SELFPAY ==
--- NOTE | 2023-10-06 15:21 | MHC.OFFVIS ---
Intake Vital Signs 10/06/23 15:22 Height 5 ft 7 in Weight 170 lb BMI 26.6 BP 122/82 Blood Pressure Location Lt brachial Position Sitting Pulse 92 Pulse Source Pulse Oximeter Pulse Oximetry (%) 97 Oxygen Delivery Method Room Air Intake Visit Reasons: 5M follow up-CONF Intake Note: Patient presents for 5 months , no concerns. Information Interpreted: non-clinical & clinical Accompanied by: Allergies Penicillins Allergy (Mild, Verified 10/04/23 15:59) Unknown Medication List - Last Reconciled 10/06/23 by ROSA Foster armodafinil 250 mg PO QAM 90 days carbidopa-levodopa 25-100 mg 1 tab QID, may take 2 tabs qhs orally, max 6 tabs per day; 90 days cholecalciferol (vitamin D3) 25 mcg PO DAILY diphenhydramine HCl (Benadryl) 25 mg PO BEDTIME PRN duloxetine 60 mg PO DAILY 90 days duloxetine (Cymbalta) 30 mg PO DAILY 90 days hyoscyamine sulfate 0.125 mg sublingual QID PRN linaclotide (Linzess) 290 mcg PO QAM 90 days metoclopramide HCl (Reglan) 10 mg PO QIDACHS omega 0-ifk-kcd-fish oil 1,000 mg (120 mg-180 mg) (Fish Oil) 1 cap PO DAILY omeprazole 20 mg PO BID 90 days rasagiline 1 mg PO DAILY 90 days HPI HPI Comments History of Present Illness Details 53-yr-old male presents for f/u visit. Pt denies any significant interval medical history changes. However, he has had some weight gain. His new PCP who has been doing some routine health screening, which has revealed hyperlipidemia and prediabetes. Patient is concerned about this and plans to adjust his diet, namely he is hoping to stop drinking soda intake (which had been pretty significant). His HgA1C was 6%. Cholesterol 247 Triglycerides 500 HDL Cholesterol 27 LDL Cholesterol Non HDL Cholesterol 220 TSH 1.00 Ind w/ ADLs. Tremors stable. No falls. No recent syncope. GI s/s and constipation are stable on his current GI regimen. His hot flashes have not been as bad. Anxiety- stable. He plans to increase his physical activity. He is active with his young grandson.? [facility] Medical History Incomplete left bundle branch block Benign tumor of skin of umbilicus Anemia Hypersomnia Atypical parkinsonism Surgical History Hx of colonoscopy History of esophagogastroduodenoscopy (EGD) Previous back surgery H/O: knee surgery Family History Mother Asthma Tremors of nervous system Arthritis Father Heart disease Gout Type II diabetes mellitus Brother Thyroid disease Parkinsons Gout Type II diabetes mellitus Paternal Aunt Cancer Paternal Grandfather Cancer Paternal Grandmother Cancer Sister Asthma Bipolar 1 disorder Social History Household Members: Spouse Alcohol intake: never Patient Tobacco Use Status: Former Tobacco user Tobacco use type: Smokeless Tobacco e-Cigarette/Vaping Use: Currently Using Review of Systems Const All systems reviewed & are unremarkable except as noted in HPI and below Physical Exam Vital Signs: Last Vital Signs Pulse 92 10/06/23 15:22 BP 122/82 10/06/23 15:22 Pulse Ox 97 10/06/23 15:22 Oxygen Delivery Method Room Air 10/06/23 15:22 BMI result Body Mass Index 26.6 Const General: cooperative and no acute distress Resp Effort & Inspection: normal respiratory effort and able to speak in complete sentences Neuro Other: General: A&O x's 3 Expression: Mild decreased expression Voice: Soft Tremor: Mild BUE R > L postural tremor Tone: Mild BUE tone. Dyskinesia: None FFM: Mild bradykinesia Foot taps: Mild bradykinesia Gait: Slight stoop, decreased arm swing, short steps, steady gait Psych: Pleasant affect Assessment & Plan Assessment & Plan (1) Parkinsonism: Comment: likely secondary to TCE exposure Negative Rocío scan. Code(s): G20 - Parkinson's disease (2) DRE (generalized anxiety disorder): Code(s): F41.1 - Generalized anxiety disorder (3) Hypersomnia: Code(s): G47.10 - Hypersomnia, unspecified Plan Encouraged patient to continue strategies optimize his cardiovascular risk factors, including reducing soda intake, increasing fruits and vegetable intake, and increasing regular physical activity. Follow-up with cardiology as scheduled. Continue Cymbalta 90 mg qd- anxiety is significantly reduced since he started Cymbalta. Continue Azilect 1 mg qd. Continue Sinemet 25-100 mg 1 tab qid- may take 2 tabs qhs. Continue Armodafinil 250mg qam. Try to not sleep in too late in am, but may continue early timed daytime naps. Continue bowel regimen per GI. We will need to monitor for development of tardive dyskinesia symptoms in setting of metoclopramide use. f/u in 6 months or sooner prn. Coding Level of Care Code Est Pt Level 4 (67505) Diagnoses Parkinsonism G20 DRE (generalized anxiety disorder) F41.1 Hypersomnia G47.10
[2023-10-06 15:22] VITALS: BP 122/82; PULSE 92; O2SAT 97; BMI 26.6
== END 2023-10-06 16:46 | disposition home or self-care (01) ==
PROVIDERS: PCP Family Medicine; Visit Provider Nurse Practitioner Family
DX: G20.A1 Parkinson's disease without dyskinesia, without mention of fluctuations (principal); F41.1 Generalized anxiety disorder; G47.10 Hypersomnia, unspecified
CPT/HCPCS: 99214

== ENCOUNTER → 2023-10-06 15:20 | Outpatient (BNVA) | payer BC, SELFPAY | PROVIDERS: PCP Family Medicine; Visit Provider Nurse Practitioner Family ==

== ENCOUNTER → 2023-11-01 09:20 | Outpatient (REF) | payer BC, SELFPAY ==
--- NOTE | ~2023-11-01 | NM_ITS ---
Lexiscan Myocardial perfusion study Indication: Left bundle branch block, assess for coronary disease and ischemia Technique: The patient was brought in for a Lexiscan perfusion study on 11/01/2023 and was injected 0.4 mg of Lexiscan intravenously. Within a minute of this injection 25 mCi of sestamibi was given intravenously. Images were obtained using the SPECT gamma camera interlaced with the gating device. Images were obtained in supine position. Resting perfusion study was performed on 11/03/2023. Patient was administered 25 mCi of sestamibi intravenously at rest. Images were then obtained in supine position. Images were processed with the software and compared side to side in short axis, horizontal long axis and vertical long axis views. Total DLP 80mGy-cm. Findings: Raw acquisition reviewed. The stress perfusion study showed diminished tracer uptake along the inferior wall. There is improvement with CT attenuation correction suggestive of diaphragmatic attenuation artifact. Gating not performed during stress. Resting study shows diminished tracer uptake along the inferior wall. There is improvement with CT attenuation correction suggestive of diaphragmatic attenuation artifact. Gating at rest reveals normal wall motion with ejection fraction at 65%. The findings are consistent with fixed inferior perfusion defect, probably from diaphragmatic attenuation artifact. NM/NM cardiolite stress test Impression: 1. Myocardial perfusion imaging study shows no clear evidence of any ischemia or infarction. 2. Gated LVEF is 65% during rest. Gating not performed during stress. EKG component of the test reported separately.
--- NOTE | 2023-11-01 09:24 | CA_ITS ---
Acquisition Time: 2023-11-01 09:18:03 Total Exercise Time: 00:02:00 Test Indications: ILBBB Medications: SEE H Protocol: LEXISCAN Max HR: 122 BPM 73% of Pred: 167 BPM Max BP: 160/108 mmHG Max Work Load: 1.0 METS Pharmacological stress test with Lexiscan injection while sitting, without anginal symptoms, with nausea and diaphoresis, with isolated with PACs and PVCs, hypertensive response to injection, with nondiagnoisitic EKGs. Aminophylline 75mg IVP given to reverse Lexiscan. Which resolved symptoms and patient returned back to baseline. Nuclear images pending. Test reviewed with Dr. Mclean. Referred By: Magali Montenegro Overread By: Magali Montenegro
== END ==
LOC: HO.CARD 09:20
PROVIDERS: PCP Internal Medicine; Visit Provider Nurse Practitioner
DX: I44.7 Left bundle-branch block, unspecified (principal)
CPT/HCPCS: 78452; 93017; A9500; J0280; J2785

== ENCOUNTER → 2023-11-01 09:24 | Outpatient (BNV) | payer BC, SELFPAY | PROVIDERS: PCP Internal Medicine; Visit Provider Nurse Practitioner | DX: I44.7 Left bundle-branch block, unspecified (principal) | CPT/HCPCS: 78452; 93016; 93018 ==

== ENCOUNTER 2023-11-07 15:11 | Outpatient (AMB) | payer BC, SELFPAY ==
--- NOTE | 2023-11-07 15:15 | MHC.OFFVIS ---
Vital Signs 11/07/23 15:16 Height 5 ft 7 in Weight 167 lb 8.821 oz BMI 26.2 BP 122/68 Blood Pressure Location Lt brachial Position Sitting Pulse 79 Pulse Source Pulse Oximeter Pulse Oximetry (%) 99 Oxygen Delivery Method Room Air Intake Visit Reasons: 6 wk s/p mibi Intake Note: 6 week follow up pt feels good Allergies Penicillins Allergy (Mild, Verified 10/04/23 15:59) Unknown HPI Comments Details: 53-year-old male presents today for a follow-up after testing. He reports he is doing well and is without symptoms. [facility] Medical History Incomplete left bundle branch block Benign tumor of skin of umbilicus Anemia Hypersomnia Atypical parkinsonism Surgical History Hx of colonoscopy History of esophagogastroduodenoscopy (EGD) Previous back surgery H/O: knee surgery Family History Mother Asthma Tremors of nervous system Arthritis Father Heart disease Gout Type II diabetes mellitus Brother Thyroid disease Parkinsons Gout Type II diabetes mellitus Paternal Aunt Cancer Paternal Grandfather Cancer Paternal Grandmother Cancer Sister Asthma Bipolar 1 disorder Social History Household Members: Spouse Alcohol intake: never Patient Tobacco Use Status: Former Tobacco user Tobacco use type: Smokeless Tobacco e-Cigarette/Vaping Use: Currently Using Review of Systems Const Denies weakness ENT Denies dizziness Card Denies chest pain, Denies chest pain with activity, Denies syncope, Denies rapid heart rate, Denies pedal edema, Denies edema, Denies leg edema, Denies lightheadedness, Denies palpitations, Denies dyspnea, Denies dyspnea on exertion and Denies orthopnea Resp Denies cough, Denies dyspnea and Denies dyspnea on exertion GI Denies hematochezia and Denies change in stool character Musc Denies abnormal gait, Denies muscle cramps, Denies muscle weakness, Denies numbness, Denies radiating pain into limb and Denies tingling Neuro Denies abnormal gait, Denies dizziness, Denies syncope, Denies numbness, Denies tingling and Denies weakness Endo Denies palpitations Physical Exam Vital Signs: Last Vital Signs Pulse 79 11/07/23 15:16 BP 122/68 11/07/23 15:16 Pulse Ox 99 11/07/23 15:16 Oxygen Delivery Method Room Air 11/07/23 15:16 BMI result Body Mass Index 26.2 Assessment & Plan Assessment & Plan (1) Cardiomyopathy: Code(s): I42.9 - Cardiomyopathy, unspecified Category: Medical (2) Incomplete left bundle branch block: Code(s): I44.7 - Left bundle-branch block, unspecified Category: Medical (3) Syncope: Code(s): R55 - Syncope and collapse Category: Medical Plan Echocardiogram showed EF of 60-65%. No aortic stenosis, normal left ventricle size and thickness. Improvement in EF from 50-55% from prior year. Reports no syncope or near syncope. New incomplete left bundle branch block on last visit New finding. Lexiscan showed no clear evience of any ischemia or infarction. Will follow with periodic EKGs. Coding Level of Care Code Est Pt Level 3 (43595) Diagnoses Cardiomyopathy I42.9 Incomplete left bundle branch block I44.7 Syncope R55
[2023-11-07 15:16] VITALS: BP 122/68; PULSE 79; O2SAT 99; BMI 26.2
== END 2023-11-07 16:09 | disposition home or self-care (01) ==
PROVIDERS: PCP Nurse Practitioner Family; Visit Provider Nurse Practitioner
DX: I42.9 Cardiomyopathy, unspecified (principal); I44.7 Left bundle-branch block, unspecified; R55 Syncope and collapse
CPT/HCPCS: 99213

== ENCOUNTER → 2023-11-07 15:11 | Outpatient (BNVA) | payer BC, SELFPAY | PROVIDERS: PCP Nurse Practitioner Family; Visit Provider Nurse Practitioner | DX: I42.9 Cardiomyopathy, unspecified (principal); I44.7 Left bundle-branch block, unspecified; R55 Syncope and collapse ==

== ENCOUNTER 2024-04-04 15:52 | Outpatient (AMB) | payer MEDICARE, SELFPAY ==
[2024-04-04 15:55] VITALS: BP 127/79; PULSE 90; BMI 25.8
--- NOTE | 2024-04-04 15:55 | A.OFFVIS_ITS ---
Vital Signs 04/04/24 15:55 Height 5 ft 7 in Weight 164 lb 14.492 oz BMI 25.8 BP 127/79 Blood Pressure Location Lt brachial Position Sitting Pulse 90 Intake Visit Reasons: 6 month follow up paresis, CIC, IBS Intake Note: Patient in office today in 6 months follow up of CIC and IBS. CC: Patient denies having any GI symptoms or concerns today. 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 Code(s): G20 - Parkinson's disease Plan He continues to do extremely well! He is even gained quite a bit of weight and gone up 2 pant sizes since I 1st started seeing him. The flip side/problem with this is that he is now has high cholesterol borderline diabetes. He is going to be going on fish oil and trying to modify his diet to control these conditions before he has to consider going on medication. He continues on the Reglan 10 mg 4 times a day along with the Linzess 290. He has not needed to use the hyoscyamine. The omeprazole 20 mg twice a day continues to control his GERD. Even says that his Parkinson's doctor feels that improving his nutrition has pushed back some of the progression of his symptoms so all over this is a success story. Return office visit in 6 months Medications: Refilled metoclopramide HCl (Reglan) 10 mg PO QIDACHS 120 tabs 6RF K59.04 - Chronic idiopathic constipation, K59.9 - Functional intestinal disorder, unspecified linaclotide (Linzess) 290 mcg PO QAM 90 days 90 caps 6RF K59.04 - Chronic idiopathic constipation TODAYS VISIT He is here today with his who is supportive He continues to do very well on his GI regimen! The only concern is that they are changing the insurance to Medicare, and they need to review and pick the appropriate plan to get coverage. So, we hold off on renews. I anticipate he will continue on his Linzess 290 micro g and Reglan 10 mg 4 times a day, his omeprazole 20 mg twice a day and as needed hyoscyamine once this is stabilized. ROV 6 mos. PFSH Medical History Incomplete left bundle branch block Benign tumor of skin of umbilicus Anemia Hypersomnia Atypical parkinsonism Surgical History Hx of colonoscopy History of esophagogastroduodenoscopy (EGD) Previous back surgery H/O: knee surgery Family History Mother Asthma Tremors of nervous system Arthritis Father Heart disease Gout Type II diabetes mellitus Brother Thyroid disease Parkinsons Gout Type II diabetes mellitus Paternal Aunt Cancer Paternal Grandfather Cancer Paternal Grandmother Cancer Sister Asthma Bipolar 1 disorder Social History Household Members: Spouse Alcohol intake: never Patient Tobacco Use Status: Former Tobacco user Tobacco use type: Smokeless Tobacco e-Cigarette/Vaping Use: Currently Using Review of Systems Const Denies fatigue, Denies fever(s), Denies night sweats, Denies poor appetite and Denies weight loss ENT Reports Normal hearing present, Denies dental pain, Denies dysphagia, Denies hearing loss, Denies mouth pain, Denies odynophagia, Denies throat swelling, Denies tongue swelling and Reports other (Dentition adequate) Card Reports no additional complaints Resp Reports no additional complaints GI Details: Denies abdominal pain, Denies melena, Reports bloating, Denies hematochezia, Reports constipation, Denies GI cramping, Denies dysphagia, Denies excessive flatus, Reports early satiety, Reports heartburn, Denies diarrhea, Denies nausea, Denies odynophagia, Denies vomiting and Denies hematemesis Musc Reports abnormal gait, Reports back pain and Reports myalgias Skin/Breast Denies pruritus, Denies lesions, Denies rash and Denies jaundice Neuro Reports Normal hearing present, Denies Abnormal speech present, Reports abnormal gait and Reports lack of coordination Endo Denies fatigue Aller/Immun Denies throat swelling and Denies tongue swelling Physical Exam Vital Signs: Last Vital Signs Pulse 90 04/04/24 15:55 BP 127/79 04/04/24 15:55 BMI result Body Mass Index 25.8 Const General: cooperative, no acute distress, well developed and well groomed Nutritional Appearance: average body habitus and well nourished Orientation/consciousness: oriented to person, oriented to place and oriented to time Limitations: No language barrier HEENT Head: Yes normocephalic and Yes atraumatic Eyes General: appearance normal, both eyes and all related structures Pupils: Equal, round and reactive pupils present Neck Neck: Yes normal visual inspection and Yes no lymphadenopathy Thyroid: Thyroid normal Resp Effort & Inspection: normal respiratory effort and able to speak in complete sentences Auscultation: clear to auscultation bilaterally Cardio Rate: regular rate Rhythm: regular rhythm Heart sounds: Normal, physiologic split S2 sound present Peripheral pulses: radial pulses present and posterior tibial pulses present GI Inspection: No distended and No Abdominal panniculus present Palpation (GI): Soft to palpation, nontender, no guarding, not rigid and No hepatosplenomegaly present Percussion: Yes normal to percussion Auscultation: normal bowel sounds Rectal Exam - Male: Yes deferred Skin General skin exam: no rashes or lesions noted, turgor normal, skin not dry, no jaundice, No spider nevi and no striae Rashes: no rashes Nails: normal Neuro General: oriented to person, oriented to place and oriented to time Cranial nerves: Yes Equal, round and reactive pupils present and Yes Normal hearing present Speech: No Abnormal speech present Extrem General: Yes normal to inspection, No clubbing, No cyanosis and No edema Psych Appearance: grossly normal and well kempt Mental Status: mental status grossly normal Speech and movement: Normal speech and movement present Affect: normal affect Attitude: cooperative Thought process: Normal thought process present and not confabulating Thought content: Normal thought content present Insight: Fair insight present (Psych) Judgement: Fair judgement present (Psych) Assessment & Plan Assessment & Plan (1) Chronic idiopathic constipation: Code(s): K59.04 - Chronic idiopathic constipation Category: Medical (2) Small bowel motility disorder: Code(s): K59.9 - Functional intestinal disorder, unspecified Category: Medical (3) GERD (gastroesophageal reflux disease): Code(s): K21.9 - Gastro-esophageal reflux disease without esophagitis Category: Medical Plan He is here today with his who is supportive He continues to do very well on his GI regimen! The only concern is that they are changing the insurance to Medicare, and they need to review and pick the appropriate plan to get coverage. So, we hold off on renews. I anticipate he will continue on his Linzess 290 micro g and Reglan 10 mg 4 times a day, his omeprazole 20 mg twice a day and as needed hyoscyamine once this is stabilized. ROV 6 mos. Coding Level of Care Code Est Pt Level 3 (21925) Diagnoses Chronic idiopathic constipation K59.04 Small bowel motility disorder K59.9 GERD (gastroesophageal reflux disease) K21.9
== END 2024-04-04 17:43 | disposition home or self-care (01) ==
PROVIDERS: PCP Internal Medicine; Visit Provider Nurse Practitioner
DX: K59.04 Chronic idiopathic constipation (principal); K59.9 Functional intestinal disorder, unspecified; K21.9 Gastro-esophageal reflux disease without esophagitis
CPT/HCPCS: 99213

== ENCOUNTER → 2024-04-04 15:52 | Outpatient (BNVA) | payer BC, SELFPAY | PROVIDERS: PCP Internal Medicine; Visit Provider Nurse Practitioner | DX: K59.04 Chronic idiopathic constipation (principal); K59.9 Functional intestinal disorder, unspecified; K21.9 Gastro-esophageal reflux disease without esophagitis; Z79.899 Other long term (current) drug therapy | CPT/HCPCS: 99212 ==

== ENCOUNTER 2024-04-08 15:23 | Outpatient (AMB) | payer MEDICARE, SELFPAY ==
--- NOTE | 2024-04-08 15:30 | A.OFFVIS_ITS ---
Vital Signs 04/08/24 15:31 Height 5 ft 7 in Weight 164 lb BMI 25.7 Intake Visit Reasons: 6 month F/U Intake Note: Patient presents for 6 month follow up. Allergies Penicillins Allergy (Mild, Verified 04/08/24 15:34) Unknown Medication List - Last Reconciled 04/08/24 by ROSA Foster armodafinil 250 mg PO QAM 90 days carbidopa-levodopa 25-100 mg 1 tab QID, may take 2 tabs qhs orally, max 6 tabs per day; 90 days cholecalciferol (vitamin D3) 25 mcg PO DAILY diphenhydramine HCl (Benadryl) 25 mg PO BEDTIME PRN duloxetine (Cymbalta) 90 mg (3 x 30 mg) PO DAILY 90 days hyoscyamine sulfate 0.125 mg sublingual QID PRN linaclotide (Linzess) 290 mcg PO QAM 90 days metoclopramide HCl (Reglan) 10 mg PO QIDACHS omega 6-qtg-bvs-fish oil 1,000 mg (120 mg-180 mg) (Fish Oil) 1 cap PO DAILY omeprazole 20 mg PO BID 90 days rasagiline 1 mg PO DAILY 90 days rosuvastatin 5 mg PO DAILY HPI Comments Details: 54 -yr-old male presents for f/u visit. Pt is accompanied by his , Christine. Pt denies any significant interval medical history changes. notes that pt is transitioning to Medicare and may need to change quantity of duloxetine. Pt's current PD medication regimen: CD-LD 25-100mg 2 tabs at 9am, 1 tab at 1pm, 5pm, 9pm- may miss his 9pm dose if feeling good. Rasagiline 1mg qd. Armodafinil 250mg qd. Duloxetine 80mg qd. Do medication effects last between doses: He is noticing his afternoon dose wearing off and his evening dose kicking in. Pt sttaes he is doing overall ok. He has stopped soda intake at home- now just drinking a soda if out to eat etc. He is trying to eat better overall. Ind w/ ADLs. UE tremors are stable. Has noticed more RLE tremor in the last few months. No falls. No recent syncope. May be occasionally off-balance- usually from bending over/leaning back- a bit more difficulty recovering from leaning/forward back. No falls. General stiffness- more so in morning, improves after he takes his am meds. GI s/s and constipation are stable on his current GI regimen. His hot flashes have not been as bad. A bit more tired- notes he stays awake a bit more. Anxiety- feels it is a little bit increased, especially around the grandchildren- worried they will get hurt. He is trying to use his stationary bike more often. Has an elliptical machine at home as well. He is active with his young grandson.? Denies hallucinations. [facility] Medical History Incomplete left bundle branch block Benign tumor of skin of umbilicus Anemia Hypersomnia Atypical parkinsonism Surgical History Hx of colonoscopy History of esophagogastroduodenoscopy (EGD) Previous back surgery H/O: knee surgery Family History Mother Asthma Tremors of nervous system Arthritis Father Heart disease Gout Type II diabetes mellitus Brother Thyroid disease Parkinsons Gout Type II diabetes mellitus Paternal Aunt Cancer Paternal Grandfather Cancer Paternal Grandmother Cancer Sister Asthma Bipolar 1 disorder Social History Household Members: Spouse Alcohol intake: never Patient Tobacco Use Status: Former Tobacco user Tobacco use type: Smokeless Tobacco e-Cigarette/Vaping Use: Currently Using Review of Systems Const All systems reviewed & are unremarkable except as noted in HPI and below Physical Exam Vital Signs: BMI result Body Mass Index 25.7 Const General: cooperative and no acute distress Resp Effort & Inspection: normal respiratory effort and able to speak in complete sentences Neuro Other: General: A&O x's 3 Expression: Mild decreased expression Voice: Soft Tremor: Mild BUE R > L postural tremor, Mild left rest thumb tremor. Tone: Mild BUE tone. Dyskinesia: None FFM: Mild bradykinesia Foot taps: Mild bradykinesia Gait: Slight stoop, decreased arm swing, short steps, steady gait Psych: Pleasant affect Assessment & Plan Assessment & Plan (1) Parkinsonism: Comment: likely secondary to TCE exposure Negative Rocío scan. Code(s): G20 - Parkinson's disease Category: Medical (2) Hypersomnia: Code(s): G47.10 - Hypersomnia, unspecified Category: Medical (3) Mild obstructive sleep apnea: Comment: AHI 6 with O2 reymundo 81%. Not on CPAP. Code(s): G47.33 - Obstructive sleep apnea (adult) (pediatric) Category: Medical Plan Recognized patient's efforts to reduce his cardiovascular risk factors, including stopping regular soda intake and increasing regular physical activity. Advised to consider doing a PD specific exercise program, even if online. Follow-up with cardiology and GI as scheduled. Continue Cymbalta 90 mg qd- anxiety is significantly reduced since he started Cymbalta- order adjusted to 3 30mg caps and sent to [facility]. Continue Azilect 1 mg qd. Continue Sinemet 25-100 mg increase from 2-1-1-1 to 2 tabs qam, 1.5 tabs at 1pm and 5pm, 1 tab at 9pm. Continue Armodafinil 250mg qam. Try to not sleep in too late in am, but may continue early timed daytime naps. Continue bowel regimen per GI. We will need to monitor for development of tardive dyskinesia symptoms in setting of metoclopramide use. f/u in 6 months or sooner prn. Medications: Changed From duloxetine 30 mg PO DAILY 90 days 90 caps 3RF To duloxetine (Cymbalta) 90 mg (3 x 30 mg) PO DAILY 270 caps 1RF 90 days Discontinued duloxetine Discontinued Reason: Doctor's Order 60 mg PO DAILY 90 days 90 caps 3RF Coding Level of Care Code Est Pt Level 4 (95017) Complex EM visit Add On G2211 Diagnoses Parkinsonism G20 Hypersomnia G47.10 Mild obstructive sleep apnea G47.33
[2024-04-08 15:31] VITALS: BMI 25.7
== END 2024-04-08 16:29 | disposition home or self-care (01) ==
PROVIDERS: PCP Internal Medicine; Visit Provider Nurse Practitioner Family
DX: G20.C Parkinsonism, unspecified (principal); G47.10 Hypersomnia, unspecified; G47.33 Obstructive sleep apnea (adult) (pediatric)
CPT/HCPCS: 99214; G2211

== ENCOUNTER → 2024-04-08 15:23 | Outpatient (BNVA) | payer MEDICARE, SELFPAY | PROVIDERS: PCP Internal Medicine; Visit Provider Nurse Practitioner Family | DX: G20.A1 Parkinson's disease without dyskinesia, without mention of fluctuations (principal); G47.10 Hypersomnia, unspecified; G47.33 Obstructive sleep apnea (adult) (pediatric) | CPT/HCPCS: 99212 ==

== ENCOUNTER 2024-11-05 14:52 | Outpatient (AMB) | payer MEDICARE, SELFPAY ==
[2024-11-05 15:09] VITALS: BP 116/86; PULSE 95; O2SAT 96; BMI 26.1
--- NOTE | 2024-11-05 15:09 | A.OFFVIS_ITS ---
Vital Signs 11/05/24 15:09 Height 5 ft 7 in Weight 166 lb 8 oz BMI 26.1 BP 116/86 Blood Pressure Location Rt brachial Position Sitting Pulse 95 Pulse Source Pulse Oximeter Pulse Oximetry (%) 96 Oxygen Delivery Method Room Air Intake Visit Reasons: Follow up Intake Note: Patient presents follow up Parkinson's and [facility]. No compliance patient is not on CPAP. Allergies Penicillins Allergy (Mild, Verified 11/05/24 15:10) Unknown HPI Comments Details: 54-yr-old male presents for f/u visit. Pt is accompanied by his , Christine. Pt denies any significant interval medical history changes. Pt notes that he has has noticed distal RLE- movement- tapping or maybe moving side to side- not uncomfortable. Always occurs while sitting. Maybe sometimes occurs with UE tremor. Unsure it correlates w/ the timing of his medication doses. Patient never increased his carbidopa levodopa dose as suggested at the last visit. Pt's current PD medication regimen: CD-LD 25-100mg 2 tabs at 9am, 1 tab at 1pm, 5pm, 9pm- may still miss his 9pm dose if feeling good. Rasagiline 1mg qd. A rmodafinil 250mg qd. Duloxetine 90mg qd. Do medication effects last between doses: He is noticing his afternoon dose wearing off and his evening dose kicking in. If he misses his 21:00 dose, he will feel awful in the morning with increased stiffness and rigidity. Pt states he is doing overall ok. Ind w/ ADLs. Denies dyshagia. Occasional mild drooling. UE tremors are stable. Has noticed more RLE tremor in the last few months. No falls. No recent syncope or orthostatic lightheadedness. Has cardiology f/u coming up. May be occasionally off-balance- usually fonly after having a busy day. No falls. General stiffness- more so in morning, improves after he takes his am meds. GI s/s and constipation are stable on his current GI regimen. Denies urinary symptoms. Hot flashes have been stable- now just once in a while. Has seen dermatology before. He feels that he now needs to sleep more- he feels at least 12 hours- however sleep schedule is not consistent. Mood- he feels his mood and anxiety is good. Spending time with his grandchildren, He is using the elliptical machine at home at times- prefers this over the stationary bike. He is active with his grandchildren. Denies hallucinations. [facility] Medical History Incomplete left bundle branch block Benign tumor of skin of umbilicus Anemia Hypersomnia Atypical parkinsonism Surgical History Hx of colonoscopy History of esophagogastroduodenoscopy (EGD) Previous back surgery H/O: knee surgery Family History Mother Asthma Tremors of nervous system Arthritis Father Heart disease Gout Type II diabetes mellitus Brother Thyroid disease Parkinsons Gout Type II diabetes mellitus Paternal Aunt Cancer Paternal Grandfather Cancer Paternal Grandmother Cancer Sister Asthma Bipolar 1 disorder Social History Household Members: Spouse Alcohol intake: never Patient Tobacco Use Status: Former Tobacco user Tobacco use type: Smokeless Tobacco e-Cigarette/Vaping Use: Currently Using Physical Exam Vital Signs: Last Vital Signs Pulse 95 11/05/24 15:09 BP 116/86 11/05/24 15:09 Pulse Ox 96 11/05/24 15:09 Oxygen Delivery Method Room Air 11/05/24 15:09 BMI result Body Mass Index 26.1 Const General: cooperative and no acute distress Resp Effort & Inspection: normal respiratory effort and able to speak in complete sentences Neuro Other: General: A&O x's 3 Expression: Mild decreased expression Voice: Soft Tremor: Mild BUE R > L postural tremor, Mild right rest thumb tremor. Tone: Mild BUE tone. Dyskinesia: Mild lower jaw movements, [id number] more so to the right FFM: Mild bradykinesia- more so on the right Foot taps: Mild bradykinesia-more so on the right Gait: Slight stoop, decreased arm swing, short steps, steady gait Psych: Pleasant affect Assessment & Plan Assessment & Plan (1) Parkinsonism: Comment: likely secondary to TCE exposure Negative Rocío scan. Code(s): G20 - Parkinson's disease Category: Medical (2) Hypersomnia: Code(s): G47.10 - Hypersomnia, unspecified Category: Medical (3) Mild obstructive sleep apnea: Comment: AHI 6 with O2 reymundo 81%. Not on CPAP- pt did not tolerate it. Code(s): G47.33 - Obstructive sleep apnea (adult) (pediatric) Category: Medical Plan Follow-up with cardiology and GI as scheduled. Continue Cymbalta 90 mg qd- anxiety is significantly reduced since he started Cymbalta- order previously adjusted to 3 30mg caps and sent to [facility]. Continue Azilect 1 mg qd. Continue Sinemet 25-100 mg (9am, 1pm, 5pm, 9pm)- if he misses his 21:00 dose, he may take this up until 05:00 the next morning. * Monitor right foot and lower jaw movements- ? Levodopa induced dyskinesia no worries versus TD related to metoclopramide use- if worsens consider CD LD ER or Rytary or amantadine. Continue Armodafinil 250mg qam for hypersomnia. Try to not sleep in too late in am, but may continue early timed daytime naps. * Patient is not currently on PAP therapy as he previously did not tolerate PAP therapy, and his sleep apnea is very mild. Continue bowel regimen per GI. We will need to monitor for development of tardive dyskinesia symptoms in setting of metoclopramide use. f/u in 6 months or sooner prn. Coding Level of Care Code Est Pt Level 4 (40613) Complex EM visit Add On G2211 Diagnoses Parkinsonism G20 Hypersomnia G47.10 Mild obstructive sleep apnea G47.33
--- OUTSIDE RECORDS SUMMARY | 2024-11-05 17:44 | XMS_ITS | Continuity of Care Document ---
Author Organization [facility] Address [address] [place] [phone]- Care Team Providers Care Educational Assistant Name Role Phone Mercedes Mcnamara Primary Care Physician [place] [facility] [place] - 10/31/24 [facility] [address] [place] [id number] Encounter Type: Triage Allergies, Adverse Reactions, Alerts Substance Criticality Severity Reaction Reaction Severity Status penicillins anaphylaxis Active Immunizations Given and Recorded Vaccine Date Status Refusal Reason influenza virus vaccine, inactivated 05/23/18 Give n influenza virus vaccine, inactivated 04/02/14 Maulik rded influenza virus vaccine, inactivated 05/03/13 Maulik rded Problem List Condition Confirmation Course Effective Dates Status Health Status Informant Anxiety Confirmed Active Chronic anemia Confirmed Active Degeneration of lumbosacral intervertebral disc Confirmed Active Depressive disorder Confirmed Active Headache Confirmed Active Hereditary essential tremor Confirmed Active Hypertriglyceridemia Confirmed Active IBS (irritable bowel syndrome) Confirmed Active Movement disorder Confirmed Active Obstructive sleep apnea syndrome Confirmed Active Knee pain Confirmed Active Parkinsonian features Confirmed Active Prediabetes Confirmed Active Social History Social History Type Response Smoking Status Former smoker, quit more than 30 days ago entered on: 10/31/18 Sex Sex Representation Male (finding) Patient Care team information Care Team Personnel Name: Jayesh Pollack RN Position: S RN Member Role: Primary Care Nurse Name: Mercedes Mcnamara Position: S PCO Associate Professional Member Role: PCP Address: [address] [place] [address] Primary [place], [place] [address] Telecom: Name: Aura Pelaez RN Position: [facility] RN Member Role: Primary Care Nurse Name: Vonnie Bray RN Position: S RN Member Role: Primary Care Nurse Name: Raven Maciel RN Position: PEGGY MENDOZA RN Member Role: Primary Care Nurse Care Team Related Persons Name: ROSCOE SANON Insurance Providers Guarantor name: JAYDE [facility] Information #: 1 Payer: MEDICARE PART B OUTPT Member Number: NA Policy Number: NA Group Number: NA
== END 2024-11-05 15:54 | disposition home or self-care (01) ==
LOC: HO.HSMS 14:52
PROVIDERS: PCP Internal Medicine; Visit Provider Nurse Practitioner Family
DX: G21.19 Other drug induced secondary parkinsonism (principal); G47.10 Hypersomnia, unspecified; G47.33 Obstructive sleep apnea (adult) (pediatric)
CPT/HCPCS: 99214; G2211

== ENCOUNTER → 2024-11-05 14:52 | Outpatient (BNVA) | payer MEDICARE, SELFPAY | PROVIDERS: PCP Internal Medicine; Visit Provider Nurse Practitioner Family | DX: G20.A1 Parkinson's disease without dyskinesia, without mention of fluctuations (principal); G47.33 Obstructive sleep apnea (adult) (pediatric); G47.10 Hypersomnia, unspecified; Z99.89 Dependence on other enabling machines and devices | CPT/HCPCS: 99212 ==

== ENCOUNTER 2024-11-06 12:30 | Outpatient (AMB) | payer MEDICARE, SELFPAY ==
[2024-11-06 12:42] VITALS: BP 116/62; PULSE 81; BMI 25.5
--- NOTE | 2024-11-06 12:42 | A.OFFVIS_ITS ---
Vital Signs 11/06/24 12:42 Height 5 ft 7 in Weight 163 lb 2.273 oz BMI 25.5 BP 116/62 Blood Pressure Location Lt brachial Position Sitting Pulse 81 Pulse Source Monitor Intake Visit Reasons: 1 f/up Allergies Penicillins Allergy (Mild, Verified 11/05/24 15:10) Unknown Medication List - Last Reconciled 11/06/24 by Monroe Mclean MD armodafinil 250 mg PO QAM 90 days carbidopa-levodopa 25-100 mg 1 tab QID, may take 2 tabs qhs orally, max 6 tabs per day; 90 days cholecalciferol (vitamin D3) 25 mcg PO DAILY diphenhydramine HCl (Benadryl) 25 mg PO BEDTIME PRN duloxetine (Cymbalta) 90 mg (3 x 30 mg) PO DAILY 90 days hyoscyamine sulfate 0.125 mg sublingual QID PRN linaclotide (Linzess) 290 mcg PO QAM 30 days metoclopramide HCl (Reglan) 10 mg PO QIDACHS 90 days omega 2-noe-doz-fish oil 1,000 (120-180) mg (Fish Oil) 1 cap PO DAILY omeprazole 20 mg PO BID 90 days rasagiline 1 mg PO DAILY 90 days rosuvastatin 5 mg PO DAILY HPI Comments Details: Rakan returns for follow-up. In the past, he was seen regarding syncopal episod es. However, those episodes are now completely resolved and he has not had any further events. He also has other diagnosis like atypical Parkinson's disease and goes to Neurology. No new cardiac concerns whatsoever. No angina or shortness of breath. He states he actually feels much better now than in the past. [facility] Medical History Incomplete left bundle branch block Benign tumor of skin of umbilicus Anemia Hypersomnia Atypical parkinsonism Surgical History Hx of colonoscopy History of esophagogastroduodenoscopy (EGD) Previous back surgery H/O: knee surgery Family History Mother Asthma Tremors of nervous system Arthritis Father Heart disease Gout Type II diabetes mellitus Brother Thyroid disease Parkinsons Gout Type II diabetes mellitus Paternal Aunt Cancer Paternal Grandfather Cancer Paternal Grandmother Cancer Sister Asthma Bipolar 1 disorder Social History Household Members: Spouse Alcohol intake: never Patient Tobacco Use Status: Former Tobacco user Tobacco use type: Smokeless Tobacco e-Cigarette/Vaping Use: Currently Using Review of Systems Const Denies weakness ENT Denies dizziness Card Denies chest pain, Denies chest pain with activity, Denies syncope, Denies rapid heart rate, Denies pedal edema, Denies edema, Denies leg edema, Denies lightheadedness, Denies palpitations, Denies dyspnea, Denies dyspnea on exertion and Denies orthopnea Resp Denies cough, Denies dyspnea and Denies dyspnea on exertion GI Denies hematochezia and Denies change in stool character Musc Denies abnormal gait, Denies muscle cramps, Denies muscle weakness, Denies numbness, Denies radiating pain into limb and Denies tingling Neuro Denies abnormal gait, Denies dizziness, Denies syncope, Denies numbness, Denies tingling and Denies weakness Endo Denies palpitations Physical Exam Vital Signs: Last Vital Signs Pulse 81 11/06/24 12:42 BP 116/62 11/06/24 12:42 BMI result Body Mass Index 25.5 Const General: comfortable and no acute distress Orientation/consciousness: patient oriented x3 HEENT Other: Unremarkable Head: Yes normal to inspection Neck Neck: Yes normal visual inspection Chest Chest palpation & inspection: normal inspection of the chest Resp Auscultation: clear to auscultation bilaterally Cardio Palpation: normal PMI Heart sounds: S1 normal heart sound present, S2 normal heart sound present, no gallops, no murmurs and no rubs GI Palpation (GI): Soft to palpation Back/Spine/Pelvis Other: unremarkable Skin General skin exam: no rashes or lesions noted Neuro General: patient oriented x3 Extrem General: Yes normal to inspection Psych Mental Status: mental status grossly normal Office Procedures EKG Details: EKG with sinus rhythm at 81/Min; nonspecific intraventricular conduction [place] [id number], Complete Assessment & Plan Assessment & Plan (1) Cardiomyopathy: Code(s): I42.9 - Cardiomyopathy, unspecified Category: Medical Plan: Echocardiogram from 2021 shows LVEF of 45-50%. Otherwise unremarkable. In the repeat study from 2023, preserved LVEF at 60-65%. Myocardial perfusion imaging study from 2023 shows no clear evidence of any ischemia or infarction. Overall, mild cardiomyopathy with recovered LVEF. No specific management for now. (2) IVCD (intraventricular conduction defect): Code(s): I45.4 - Nonspecific intraventricular block Category: Medical Plan: EKG shows sinus rhythm with an intraventricular conduction defect. This is different compared to prior EKG from 2021 but similar to EKG from last year. We discussed about this in detail. We will need to follow up for any progressive conduction system disease. If any clear symptoms like dizziness/presyncope, advised to seek emergency help. Plan Discussion Notes During this visit, I provided a comprehensive review of the patient's heart conduction abnormalities and atypical Parkinson's disease. We discussed the slowing of cardiac electrical conduction, noting that it has remained stable from 2023 onward and the importance of continued monitoring through annual EKGs. I instructed the patient on recognizing symptoms that require urgent care, like syncope or severe dizziness, and the steps to take in such scenarios. I underscored the necessity of regular check-ups with his primary care for routine evaluations including thyroid levels. No new treatments were proposed, and the patient consented to the outlined monitoring strategy. Also discussed with significant other. Patient was informed and verbally consented to the use of an ambient scribe for clinic note documentation during this visit. Patient Instructions: - Attend annual check-ups to monitor heart conduction with EKGs. - Call emergency services immediately if experiencing severe dizziness or passing out. - Continue current management for Parkinson's symptoms and consult your doctor if symptoms worsen. - Follow-up regularly with your primary care doctor for routine blood work and thyroid checks. - Keep a record of any new symptoms and report them during medical visits. Coding Level of Care Code Est Pt Level 4 (47809) Complex EM visit Add On G2211 Diagnoses Cardiomyopathy I42.9 IVCD (intraventricular conduction defect) I45.4 CPT Codes EKG - CPT: 02099-[id number], Complete ([id number])
== END 2024-11-06 13:02 | disposition home or self-care (01) ==
LOC: HO.HCS 12:30
PROVIDERS: PCP Internal Medicine; Visit Provider Internal Medicine
DX: I42.9 Cardiomyopathy, unspecified (principal); I45.4 Nonspecific intraventricular block
CPT/HCPCS: 93010; 99214; G2211

== ENCOUNTER → 2024-11-06 12:30 | Outpatient (BNVA) | payer MEDICARE, SELFPAY | PROVIDERS: PCP Internal Medicine; Visit Provider Internal Medicine | DX: I42.9 Cardiomyopathy, unspecified (principal); I45.4 Nonspecific intraventricular block | CPT/HCPCS: 93005; 99212 ==

== ENCOUNTER 2024-12-11 15:51 | Outpatient (AMB) | payer MEDICARE, SELFPAY ==
--- NOTE | 2024-12-11 15:55 | A.OFFVIS_ITS ---
Vital Signs 12/11/24 15:56 Height 5 ft 7 in Weight 168 lb BMI 26.3 BP 135/68 Blood Pressure Location Lt brachial Position Sitting Pulse 81 Pulse Oximetry (%) 96 Oxygen Delivery Method Room Air Intake Visit Reasons: 6 mo f/u Paresis,CIC r/s 10/03 Intake Note: Patient 6 mo f/u for Paresis and CIC. Patient denies any GI issues. [employer] Required: No Accompanied by: Self / Same As Patient Allergies Penicillins Allergy (Mild, Verified 12/11/24 15:55) Unknown HPI HPI 6 mo f/u Paresis,CIC r/s 10/03: Details: Assessment & Plan (1) Chronic idiopathic constipation: Code(s): K59.04 - Chronic idiopathic constipation Category: Medical (2) Small bowel motility disorder: Code(s): K59.9 - Functional intestinal disorder, unspecified Category: Medical (3) GERD (gastroesophageal reflux disease): Code(s): K21.9 - Gastro-esophageal reflux disease without esophagitis Category: Medical Plan He is here today with his who is supportive He continues to do very well on his GI regimen! The only concern is that they are changing the insurance to Medicare, and they need to review and pick the appropriate plan to get coverage. So, we hold off on renews. I anticipate he will continue on his Linzess 290 micro g and Reglan 10 mg 4 times a day, his omeprazole 20 mg twice a day and as needed hyoscyamine once this is stabilized. ROV 6 mos. TODAY'S VISIT He had some exacerbation of sx fora couple of week, but used his rescue meds of he hyoscamine and the extra reglan and it resolved and now he is back on track. New problems, tongue problems with speech, new dx cardiomyopathy and conduction block. He has had no further syncopal episodes, which is good and they may have been vasovagal secondary to pain in the abdomen which was resolved with our GI interventions. Cardiology did not seem to feel this was causing his syncopal episodes. He continue on his Linzess 290 micro g and Reglan 10 mg 4 times a day, his omeprazole 20 mg twice a day and as needed hyoscyamine. ROV 6 mos. COUNTS INCLUDE 234 BEDS AT THE [facility] Medical History Incomplete left bundle branch block Benign tumor of skin of umbilicus Anemia Hypersomnia Atypical parkinsonism Surgical History Hx of colonoscopy History of esophagogastroduodenoscopy (EGD) Previous back surgery H/O: knee surgery Family History Mother Asthma Tremors of nervous system Arthritis Father Heart disease Gout Type II diabetes mellitus Brother Thyroid disease Parkinsons Gout Type II diabetes mellitus Paternal Aunt Cancer Paternal Grandfather Cancer Paternal Grandmother Cancer Sister Asthma Bipolar 1 disorder Social History Household Members: Spouse Alcohol intake: never Patient Tobacco Use Status: Former Tobacco user Tobacco use type: Smokeless Tobacco e-Cigarette/Vaping Use: Currently Using Review of Systems Const Denies fatigue, Denies fever(s), Denies night sweats, Denies poor appetite and Denies weight loss ENT Details: Some abnormal speech/tongue issues Reports Normal hearing present, Denies dental pain, Denies dysphagia, Denies hearing loss, Denies mouth pain, Denies odynophagia, Denies throat swelling, Denies tongue swelling and Reports other (Dentition adequate) Card Reports no additional complaints Resp Reports no additional complaints GI Details: Reports abdominal pain, Denies melena, Denies bloating, Denies hematochezia, Reports constipation, Denies GI cramping, Denies dysphagia, Denies excessive flatus, Reports early satiety, Reports heartburn, Denies diarrhea, Reports nausea, Denies odynophagia, Denies vomiting and Denies hematemesis Musc Reports stiffness Skin/Breast Denies pruritus, Denies lesions, Denies rash and Denies jaundice Neuro Reports Normal hearing present, Denies Abnormal speech present, Reports tremor(s) and Reports other (Difficulty initiating some movement) Endo Denies fatigue Aller/Immun Denies throat swelling and Denies tongue swelling Physical Exam Vital Signs: Last Vital Signs Pulse 81 12/11/24 15:56 BP 135/68 12/11/24 15:56 Pulse Ox 96 12/11/24 15:56 Oxygen Delivery Method Room Air 12/11/24 15:56 BMI result Body Mass Index 26.3 Const General: cooperative, no acute distress, well developed and well groomed Nutritional Appearance: average body habitus and well nourished Orientation/consciousness: oriented to person, oriented to place and oriented to time Limitations: No language barrier HEENT Head: Yes normocephalic and Yes atraumatic Eyes General: appearance normal, both eyes and all related structures Pupils: Equal, round and reactive pupils present Neck Neck: Yes normal visual inspection and Yes no lymphadenopathy Thyroid: Thyroid normal Resp Effort & Inspection: normal respiratory effort and able to speak in complete sentences Auscultation: clear to auscultation bilaterally Cardio Rate: regular rate Rhythm: regular rhythm Heart sounds: Normal, physiologic split S2 sound present Peripheral pulses: radial pulses present and posterior tibial pulses present GI Inspection: No distended and No Abdominal panniculus present Palpation (GI): Soft to palpation, nontender, no guarding, not rigid and No hepatosplenomegaly present Percussion: Yes normal to percussion Auscultation: normal bowel sounds Rectal Exam - Male: Yes deferred Skin General skin exam: no rashes or lesions noted, turgor normal, skin not dry, no jaundice, No spider nevi and no striae Rashes: no rashes Nails: normal Neuro General: oriented to person, oriented to place and oriented to time Cranial nerves: Yes Equal, round and reactive pupils present and Yes Normal hearing present Speech: No Abnormal speech present Extrem General: Yes normal to inspection, No clubbing, No cyanosis and No edema Psych Appearance: grossly normal and well kempt Mental Status: mental status grossly normal Speech and movement: Normal speech and movement present Affect: normal affect Attitude: cooperative Thought process: Normal thought process present and not confabulating Thought content: Normal thought content present Insight: Good insight present (Psych) Judgement: Good judgement present (Psych) Assessment & Plan Assessment & Plan (1) GERD (gastroesophageal reflux disease): Code(s): K21.9 - Gastro-esophageal reflux disease without esophagitis Category: Medical (2) Small bowel motility disorder: Code(s): K59.9 - Functional intestinal disorder, unspecified Category: Medical (3) Chronic idiopathic constipation: Code(s): K59.04 - Chronic idiopathic constipation Category: Medical (4) Parkinsonism: Comment: likely secondary to TCE exposure Negative Rocío scan. Code(s): G20 - Parkinson's disease Category: Medical Plan He had some exacerbation of sx fora couple of week, but used his rescue meds of he hyoscamine and the extra reglan and it resolved and now he is back on track. New problems, tongue problems with speech, new dx cardiomyopathy and conduction block. He has had no further syncopal episodes, which is good and they may have been vasovagal secondary to pain in the abdomen which was resolved with our GI interventions. Cardiology did not seem to feel this was causing his syncopal episodes. He continue on his Linzess 290 micro g and Reglan 10 mg 4 times a day, his omeprazole 20 mg twice a day and as needed hyoscyamine. ROV 6 mos. Medications: New hyoscyamine sulfate 0.125 mg sublingual QID PRN 90 tabs 6RF cramps K58.9 - Irritable bowel syndrome, unspecified Refilled metoclopramide HCl (Reglan) 10 mg PO QIDACHS 360 tabs 2RF 90 days K59.04 - Chronic idiopathic constipation, K59.9 - Functional intestinal disorder, unspeci fied omeprazole 20 mg PO BID 180 caps 3RF 90 days K21.9 - Gastro-esophageal reflux disease without esophagitis linaclotide (Linzess) 290 mcg PO QAM 30 caps 6RF 30 days K59.04 - Chronic idiopathic constipation Coding Level of Care Code Est Pt Level 3 (73794) Diagnoses GERD (gastroesophageal reflux disease) K21.9 Small bowel motility disorder K59.9 Chronic idiopathic constipation K59.04 Parkinsonism G20
[2024-12-11 15:56] VITALS: BP 135/68; PULSE 81; O2SAT 96; BMI 26.3
== END 2024-12-11 16:25 | disposition home or self-care (01) ==
LOC: HO.HGI 15:52
PROVIDERS: PCP Internal Medicine; Visit Provider Nurse Practitioner
DX: K21.9 Gastro-esophageal reflux disease without esophagitis (principal); K59.9 Functional intestinal disorder, unspecified; K59.04 Chronic idiopathic constipation; G20.A1 Parkinson's disease without dyskinesia, without mention of fluctuations
CPT/HCPCS: 99213

== ENCOUNTER → 2024-12-11 15:51 | Outpatient (BNVA) | payer MEDICARE, SELFPAY | PROVIDERS: PCP Internal Medicine; Visit Provider Nurse Practitioner | DX: K58.1 Irritable bowel syndrome with constipation (principal); K59.04 Chronic idiopathic constipation; K59.9 Functional intestinal disorder, unspecified; K21.9 Gastro-esophageal reflux disease without esophagitis; G20.A1 Parkinson's disease without dyskinesia, without mention of fluctuations | CPT/HCPCS: 99212 ==

== ENCOUNTER 2025-04-23 11:20 | Outpatient (AMB) | payer MEDICARE, SELFPAY ==
--- NOTE | 2025-04-23 11:17 | MHC.OFFVIS ---
Vital Signs 04/23/25 11:24 Height 16 ft Weight 163 lb BMI 3.1 BP 140/90 H Blood Pressure Location Rt brachial Position Sitting Pulse 84 Pulse Source Pulse Oximeter Pulse Oximetry (%) 92 Oxygen Delivery Method Room Air Intake Visit Reasons: Follow up Supervisor Liquefaction Required: No Accompanied by: Self / Same As Patient Allergies Penicillins Allergy (Mild, Verified 04/23/25 11:25) Unknown Medication List - Last Reconciled 04/23/25 by ROSA Foster armodafinil 250 mg PO QAM 90 days carbidopa-levodopa 25-100 mg 1 tab QID, may take 2 tabs qhs orally, max 6 tabs per day; 90 days cholecalciferol (vitamin D3) 25 mcg PO DAILY diphenhydramine HCl (Benadryl) 25 mg PO BEDTIME PRN duloxetine 90 mg (3 x 30 mg) PO DAILY 90 days hyoscyamine sulfate 0.125 mg sublingual QID PRN linaclotide (Linzess) 290 mcg PO QAM 30 days metoclopramide HCl (Reglan) 10 mg PO QIDACHS 90 days omega 4-tfm-hmu-fish oil 1,000 (120-180) mg (Fish Oil) 1 cap PO DAILY omeprazole 20 mg PO BID 90 days rasagiline 1 mg PO DAILY 90 days rosuvastatin 5 mg PO DAILY HPI Comments Details: 55-yr-old male presents for f/u visit. Pt is accompanied by his , Christine. Pt denies any significant interval medical history changes. Patient reports at the end of Sep, reccurence of night sweats, leg pain and soreness, diarrhea, increased shaking, fatigue, and fever up to 101.2. He states he is feeling better now. He id not seek medical attention. Home Covid-19 test was negative. Pt notes that he has has noticed distal RLE- movement- tapping or maybe moving side to side- not uncomfortable. Always occurs while sitting. Maybe sometimes occurs with UE tremor. Unsure it correlates w/ the timing of his medication doses. Patient never increased his carbidopa levodopa dose as suggested at the last visit. Pt's current PD medication regimen: CD-LD 25-100mg 2 tabs at 9am, 1 tab at 1pm, 5pm, 9-11pm. Rasagiline 1mg qd. Armodafinil 250mg qd. Duloxetine 90mg qd. Do medication effects last between doses: He is noticing his 4pm dose wears off. Pt states he is doing overall ok. Ind w/ ADLs. Denies dyshagia. Occasional mild drooling. RUE > LUE, RLE or whole body tremors are stable, come and go. May increase with stress. His family is more prone to notice a tremor than he is. May have right facial movements at times, which has family notices. No recent syncope or orthostatic lightheadedness. He is still f/b cardiology. He had a fall in January, states he was sitting on a stool (bar stool height) x's at least 30 minutes, when he stood up, he just could not feel his legs, and feel face forehead and struck his forehead on marianna ground. Denies any residual effects from this fall. Shuffles more in the morning. General stiffness- more so in morning, improves after he takes his am meds. GI s/s and constipation are stable on his current GI regimen. F/b GI. Denies urinary symptoms. Hot flashes had resolved other than the above. He continues to need 12 hours of sleep a night, tends to go to bed around 12-1am and wakes up at 9am and takes a coffee and his am meds, and then goes back to sleep until 10-11am. Mood- he feels his mood and anxiety is good. Has some increased stress r/t being his mother's HCP/POA and who is moving into a group home due to advancing dementia and falls. He states his mother and her half-sister both have dementia, and his mother's aunt had dementia. He is using the elliptical machine at home at times- prefers this over the stationary bike. He is active with his grandchildren. Denies hallucinations. [facility] Medical History Incomplete left bundle branch block Benign tumor of skin of umbilicus Anemia Hypersomnia Atypical parkinsonism Surgical History Hx of colonoscopy History of esophagogastroduodenoscopy (EGD) Previous back surgery H/O: knee surgery Family History Mother Asthma Tremors of nervous system Arthritis Father Heart disease Gout Type II diabetes mellitus Brother Thyroid disease Parkinsons Gout Type II diabetes mellitus Paternal Aunt Cancer Paternal Grandfather Cancer Paternal Grandmother Cancer Sister Asthma Bipolar 1 disorder Social History Household Members: Spouse Alcohol intake: never Patient Tobacco Use Status: Former Tobacco user Tobacco use type: Smokeless Tobacco e-Cigarette/Vaping Use: Currently Using Physical Exam Vital Signs: Last Vital Signs Pulse 84 04/23/25 11:24 BP 140/90 H 04/23/25 11:24 Pulse Ox 92 04/23/25 11:24 Oxygen Delivery Method Room Air 04/23/25 11:24 BMI result Body Mass Index 3.1 Const General: cooperative and no acute distress Resp Effort & Inspection: normal respiratory effort and able to speak in complete sentences Neuro Other: General: A&O x's 3 Expression: Mild decreased expression Voice: Soft Tremor: Mild BUE R > L postural tremor. Tone: Mild BUE tone. Dyskinesia: Mild right cheek involuntary movements FFM: Mild bradykinesia- more so on the right Foot taps: Mild bradykinesia-more so on the right Gait: Slight stoop, decreased arm swing, shorter steps, steady gait Psych: Pleasant affect Assessment & Plan Assessment & Plan (1) Parkinsonism: Comment: likely secondary to TCE exposure Negative Rocío scan. 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 Not on CPAP- pt did not tolerate it. Code(s): G47.33 - Obstructive sleep apnea (adult) (pediatric) Category: Medical Plan Follow-up with cardiology and GI as scheduled. Continue Cymbalta 90 mg qd- anxiety is significantly reduced since he started Cymbalta- order previously adjusted to 3 30mg caps and sent to [facility]. Continue Azilect 1 mg qd. Discontinue Sinemet 25-100 mg 2-1-1-1 (9am, 1pm, 5pm, 9pm) order. Start carbidopa levodopa IR 25-100 mg tab, 2 tabs at 9 am and 1 pm, and 1 tab at 4 pm and 9 pm. Monitor for potential adverse effects, such as orthostatic hypotension, dyskinesia, hallucinations, GI upset. Monitor right foot and lower jaw movements- ? Levodopa induced dyskinesia versus TD related to metoclopramide use- if worsens consider CD LD ER or Rytary or amantadine. Continue Armodafinil 250mg qam for hypersomnia. Try to not sleep in too late in am, but may continue early timed daytime naps. Patient is not currently on PAP therapy as he previously did not tolerate PAP therapy, and his sleep apnea is very mild. Continue bowel regimen per GI. Continue to monitor for development of tardive dyskinesia symptoms in setting of metoclopramide use. Regarding his family history of dementia, discussed that patient may wish to consider seeing if his mother can undergo genetic testing for dementia, to determine if there is a familial risk for himself and his children. Follow-up in 6 months or sooner prn. 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
[2025-04-23 11:24] VITALS: BP 140/90; PULSE 84; O2SAT 92
== END 2025-04-23 12:33 | disposition home or self-care (01) ==
LOC: HO.HSMS 11:21
PROVIDERS: PCP Internal Medicine; Visit Provider Nurse Practitioner Family
DX: G21.8 Other secondary parkinsonism (principal); G47.10 Hypersomnia, unspecified; G47.33 Obstructive sleep apnea (adult) (pediatric)
CPT/HCPCS: 99214; G2211

== ENCOUNTER → 2025-04-23 11:20 | Outpatient (BNVA) | payer MEDICARE, SELFPAY | PROVIDERS: PCP Internal Medicine; Visit Provider Nurse Practitioner Family | DX: G21.8 Other secondary parkinsonism (principal); G47.10 Hypersomnia, unspecified; G47.33 Obstructive sleep apnea (adult) (pediatric) | CPT/HCPCS: 99212 ==

== ENCOUNTER 2025-06-10 15:12 | Outpatient (AMB) | payer MEDICARE, SELFPAY ==
--- NOTE | 2025-06-10 15:14 | MHC.OFFVIS ---
Vital Signs 06/10/25 15:15 Height 5 ft 7 in Weight 169 lb BMI 26.5 BP 122/66 Blood Pressure Location Lt brachial Position Sitting Pulse 86 Pulse Oximetry (%) 97 Oxygen Delivery Method Room Air Intake Visit Reasons: 6 mo CIC, Paresis Intake Note: Patient 6 month follow up for CIC, Paresis. Patient denies any GI issues. Learning Support Assistant Required: No Accompanied by: Spouse Allergies Penicillins Allergy (Mild, Verified 06/10/25 15:14) Unknown HPI HPI 6 mo CIC, Paresis: Details: Assessment & Plan (1) GERD (gastroesophageal reflux disease): Code(s): K21.9 - Gastro-esophageal reflux disease without esophagitis Category: Medical (2) Small bowel motility disorder: Code(s): K59.9 - Functional intestinal disorder, unspecified Category: Medical (3) Chronic idiopathic constipation: Code(s): K59.04 - Chronic idiopathic constipation Category: Medical (4) Parkinsonism: Comment: likely secondary to TCE exposure Negative Rocío scan. Code(s): G20 - Parkinson's disease Category: Medical Plan He had some exacerbation of sx fora couple of week, but used his rescue meds of he hyoscamine and the extra reglan and it resolved and now he is back on track. New problems, tongue problems with speech, new dx cardiomyopathy and conduction block. He has had no further syncopal episodes, which is good and they may have been vasovagal secondary to pain in the abdomen which was resolved with our GI interventions. Cardiology did not seem to feel this was causing his syncopal episodes. He continue on his Linzess 290 micro g and Reglan 10 mg 4 times a day, his omeprazole 20 mg twice a day and as needed hyoscyamine. ROV 6 mos. Medications: New hyoscyamine sulfate 0.125 mg sublingual QID PRN 90 tabs 6RF cramps K58.9 - Irritable bowel syndrome, unspecified Refilled metoclopramide HCl (Reglan) 10 mg PO QIDACHS 360 tabs 2RF 90 days K59.04 - Chronic idiopathic constipation, K59.9 - Functional intestinal disorder, unspecified omeprazole 20 mg PO BID 180 caps 3RF 90 days K21.9 - Gastro-esophageal reflux disease without esophagitis linaclotide (Linzess) 290 mcg PO QAM 30 caps 6RF 30 days K59.04 - Chronic idiopathic constipation TODAY'S VISIT REPLACED BY [facility] Medical History Incomplete left bundle branch block Benign tumor of skin of umbilicus Anemia Hypersomnia Atypical parkinsonism Surgical History Hx of colonoscopy History of esophagogastroduodenoscopy (EGD) Previous back surgery H/O: knee surgery Family History Mother Asthma Tremors of nervous system Arthritis Father Heart disease Gout Type II diabetes mellitus Brother Thyroid disease Parkinsons Gout Type II diabetes mellitus Paternal Aunt Cancer Paternal Grandfather Cancer Paternal Grandmother Cancer Sister Asthma Bipolar 1 disorder Social History Household Members: Spouse Alcohol intake: never Patient Tobacco Use Status: Former Tobacco user Tobacco use type: Smokeless Tobacco e-Cigarette/Vaping Use: Currently Using Review of Systems Const Denies fatigue, Denies fever(s), Denies night sweats, Denies poor appetite and Denies weight loss ENT Reports Normal hearing present, Denies dental pain, Denies dysphagia, Denies hearing loss, Denies mouth pain, Denies odynophagia, Denies throat swelling, Denies tongue swelling and Reports other (Dentition adequate) Card Reports no additional complaints Resp Reports no additional complaints GI Details: Denies abdominal pain, Denies melena, Denies bloating, Denies hematochezia, Reports constipation, Denies GI cramping, Denies dysphagia, Denies excessive flatus, Reports early satiety, Reports heartburn, Denies diarrhea, Denies nausea, Denies odynophagia, Denies vomiting and Denies hematemesis Musc Reports abnormal gait and Reports stiffness Skin/Breast Denies pruritus, Denies lesions, Denies rash and Denies jaundice Neuro Reports Normal hearing present, Reports Neuro-related abnormal movements, Denies Abnormal speech present and Reports abnormal gait Endo Denies fatigue Aller/Immun Denies throat swelling and Denies tongue swelling Physical Exam Vital Signs: Last Vital Signs Pulse 86 06/10/25 15:15 BP 122/66 06/10/25 15:15 Pulse Ox 97 06/10/25 15:15 Oxygen Delivery Method Room Air 06/10/25 15:15 BMI result Body Mass Index 26.5 Const General: cooperative, no acute distress, well developed and well groomed Nutritional Appearance: well nourished and underweight Orientation/consciousness: oriented to person, oriented to place and oriented to time Limitations: No language barrier and physical limitations HEENT Head: Yes normocephalic and Yes atraumatic Eyes General: appearance normal, both eyes and all related structures Pupils: Equal, round and reactive pupils present Neck Neck: Yes normal visual inspection and Yes no lymphadenopathy Thyroid: Thyroid normal Resp Effort & Inspection: normal respiratory effort and able to speak in complete sentences Auscultation: clear to auscultation bilaterally Cardio Rate: regular rate Rhythm: regular rhythm Heart sounds: Normal, physiologic split S2 sound present Peripheral pulses: radial pulses present and posterior tibial pulses present GI Inspection: No distended and No Abdominal panniculus present Palpation (GI): Soft to palpation, nontender, no guarding, not rigid and No hepatosplenomegaly present Percussion: Yes normal to percussion Auscultation: normal bowel sounds Rectal Exam - Male: Yes deferred Skin General skin exam: no rashes or lesions noted, turgor normal, skin not dry, no jaundice, No spider nevi and no striae Rashes: no rashes Nails: normal Neuro General: oriented to person, oriented to place and oriented to time Cranial nerves: Yes Equal, round and reactive pupils present and Yes Normal hearing present Speech: No Abnormal speech present Extrem General: Yes normal to inspection, No clubbing, No cyanosis and No edema Psych Appearance: grossly normal and well kempt Mental Status: mental status grossly normal Speech and movement: Normal speech and movement present Affect: normal affect Attitude: cooperative Thought process: Normal thought process present and not confabulating Thought content: Normal thought content present Insight: Good insight present (Psych) Judgement: Good judgement present (Psych) Assessment & Plan Assessment & Plan (1) Chronic idiopathic constipation: Code(s): K59.04 - Chronic idiopathic constipation Category: Medical (2) Small bowel motility disorder: Code(s): K59.9 - Functional intestinal disorder, unspecified Category: Medical (3) GERD (gastroesophageal reflux disease): Code(s): K21.9 - Gastro-esophageal reflux disease without esophagitis Category: Medical Plan He continue on his Linzess 290 micro g and Reglan 10 mg 4 times a day, his omeprazole 20 mg twice a day and as needed hyoscyamine. Subjective Patient presents for routine follow-up. Reports doing well overall with no current gastrointestinal complaints. States linaclotide has been very effective: That pill's a godsend and has not had constipation since starting it. Notes metoclopramide is essential; if a dose is missed, he develops abdominal pain. Has not needed hyoscyamine and has ample supply at home. Eating well. Previously experienced presyncope/syncope on the toilet consistent with vasovagal episodes; this has resolved. Reports Parkinson?s symptoms have been a bit more active; carbidopa-levodopa regimen was adjusted due to morning wearing-off before the midday dose. Sustained a fall in March when slipping off a stool, with minor head abrasions and no reported sequelae. Requests that linaclotide be sent to [facility] [address] (cannot use mail order for this medication); other maintenance medications are obtained via [facility]. Plans to review Medicare plan options may change pharmacy arrangements. Parkinson?s disease. Objective - Neurologic: Mild reduction in facial expressiveness consistent with Parkinson?s; subtle orofacial tic noted. Patient conversant and in no acute distress. Assessment & Plan Chronic constipation: Well-controlled on linaclotide with excellent symptom relief; no breakthrough constipation reported. - Continue linaclotide as prescribed. - Send refills to [facility] [address] per patient preference; do not route via mail order. - Follow up in 6 months or sooner if symptoms recur. Upper GI symptoms responsive to metoclopramide: Abdominal discomfort occurs if doses are missed; doing well when adherent. - Continue metoclopramide as prescribed; reinforce adherence to prevent symptom recurrence. Abdominal cramping/spasm (hyoscyamine PRN): Not currently needed; patient has ample supply at home. - No refill needed at this time; may use PRN as previously directed if symptoms arise. Parkinson?s disease with recent regimen adjustment and fall in March: Managed by neurology. Current schedule reported as carbidopa-levodopa: 2 tablets at 9:00, 2 tablets at 13:00, 1 tablet at 17:00, and 1 tablet at 21:00. Mild hypomimia and subtle orofacial tic observed today. - Continue current carbidopa-levodopa regimen per neurology. - Monitor for wearing-off and falls; seek care if worsening. Vasovagal episodes with defecation (historical): Previously present; now resolved with current regimen and bowel regularity. - Continue current management; monitor and report any recurrence. Colorectal cancer screening status: Prior colonoscopy performed with a different provider; exact date not readily available during today?s visit. - I will review prior records and coordinate with the current primary care clinic to verify the last colonoscopy date and determine appropriate surveillance interval. - No colonoscopy ordered today pending verification. Follow-up: Return in 6 months, or sooner as needed. Medications: Refilled linaclotide (Linzess) 290 mcg PO QAM 30 caps 6RF 30 days K59.04 - Chronic idiopathic constipation metoclopramide HCl (Reglan) 10 mg PO QIDACHS 360 tabs 2RF 90 days K59.04 - Chronic idiopathic constipation, K59.9 - Functional intestinal disorder, unspecified omeprazole 20 mg PO BID 180 caps 3RF 90 days K21.9 - Gastro-esophageal reflux disease without esophagitis Coding Level of Care Code Est Pt Level 3 (71512) Diagnoses Chronic idiopathic constipation K59.04 Small bowel motility disorder K59.9 GERD (gastroesophageal reflux disease) K21.9
[2025-06-10 15:15] VITALS: BP 122/66; PULSE 86; O2SAT 97; BMI 26.5
--- OUTSIDE RECORDS SUMMARY | 2025-06-10 18:51 | XMS_ITS | Encounter Summary ---
Author Organization [facility] Address [address] [place] [id number] Phone Care Team Providers Care Supervisor Wood Crew Name Role Phone Jana Sandy MD Primary Care Provider + Encounter Details Date Type Department Care Team (Late st Contact Info) Description 04/26/[address] [facility] Imaging [address] [place] [address] Social History Tobacco Use Types Packs/Day Years Used Date Smoking Tobacco: Never Assessed Sex and Gender Information Value Date Recorded Sex Assigned at Not on file Legal Sex Male 4:00 PM EDT Gender Identity Not on file Sexual Orientation Not on file documented as of this encounter Plan of Treatment Not on file documented as of this encounter Visit Diagnoses Not on filedocumented in this encounter Care Teams Supervisor Wood Crew Relationship Specialty Start Date End Date Jana Sandy MD [address] [place] [address] Family Medicine & [place] [address] PCP - General Internal Medicine 02/15/18 documented as of this encounter Additional Source Comments The information contained in this document represents components of the legal health record. It is not the complete legal health record.[facility]
--- OUTSIDE RECORDS SUMMARY | 2025-06-10 18:51 | XMS_ITS | Encounter Summary ---
Author Organization [facility] Address [address] [facility] [address] [place] [address] Phone Care Team Providers Care Bulldogger Name Role Phone Jana Sandy MD Primary Care Provider + Reason for Referral * Consultation (Elective) - Closed Specialty Diagnoses / Procedures Referred By Effie soriano Referred To Contact Neurology Diagnoses Parkinsonism, unspecified Parkinsonism type Essential tremor Jana Sandy MD Phone: tel: fax: Kenneth Martin MD, PhD Phone: tel: fax: [email or web address] Referral ID Status Reason Start Date Expiration Date Visits Re quested Visits Authorized [id number] Closed 04/25/2018 04/25/2019 6 6 Encounter Details Date Type Department Care Team (Latest Contact Info) Description 02/28/2018 Transcribe Orders [facility] Department of Neurology [address] [facility], [address] [place] [address] Jaki Beckwith MD [address] [facility] [address] [place] [address] Parkinsonism, unspecified Parkinsonism type (Primary Dx); Essential tremor Social History Tobacco Use Types Packs/Day Years Used Date Smoking Tobacco: Never Assessed Sex and Gender Information Value Date Recorded Sex Assigned at Not on file Legal Sex Male 4:00 PM EDT Gender Identity Not on file Sexual Orientation Not on file documented as of this encounter Plan of Treatment Scheduled Referrals Name Type Priority Associated Diagnoses Orde r Schedule Ambulatory referral to [facility] Neurology Outpatient Referral Routine Parkinsonism, unspecified Parkinsonism type Essential tremor Ordered: 02/28/2018 documented as of this encounter Visit Diagnoses Diagnosis Parkinsonism, unspecified Parkinsonism type- Primary Essential tremor documented in this encounter Care Teams Bulldogger Relationship Specialty Start Date End Date Jana Sandy MD [address] [facility] Family Medicine & [place] [address] PCP - General Internal Medicine 02/15/18 documented as of this encounter Additional Source Comments The information contained in this document represents components of the legal health record. It is not the complete legal health record.[facility]
--- OUTSIDE RECORDS SUMMARY | 2025-06-10 18:52 | XMS_ITS | Clinical Summary ---
Author Organization [facility] Address [facility] [address] [facility] [address] [place] [phone] Phone Care Team Providers Care Pinsetter Mechanic Helper Name Role Phone Jana Sandy MD Primary Care Provider + Allergies Active Allergy Reactions Criticality Noted Date Comments Penicillins Hives 04/26/2018 Medications cholecalciferol (VITAMIN D3) 1,000 unit tablet Take 1,000 Units by mouth daily. Active omeprazole (PRILOSEC) 20 MG capsule Take 20 mg by mouth daily. Active clonazePAM (KLONOPIN) 0.5 MG tablet Take 0.5 mg by mouth nightly. Active rasagiline (AZILECT) 1 mg Take 1 mg by mouth daily. Active carbidopa-levod opa (SINEMET) 25-100 mg per tablet Take 1.5 tablets by mouth 3 (three) times a day. Taking 1/2 tablet AM, 1/2 tablet lunchtime and 1 tablet at dinnertime 1.5 tablet 2 9 Active Additional Information Patient taking differently: 1 tabletOral4 times daily, (No instructions reported), Reported on 10/12/2020 DULoxetine (CYMBALTA) 30 MG capsule Take 30 mg by mouth daily. 1 Active DULoxetine (CYMBALTA) 60 MG capsule Take 60 mg by mouth daily. 1 Active modafiniL (PROVIGIL) 200 MG tablet Take 200 mg by mouth 2 (two) times a day. 1 Active hyoscyamine (LEVSIN SL) 0.125 mg SL tablet Take 0.125 mg by mouth as needed. 1 Active linaCLOtide (LINZESS) 72 mcg capsule Take 72 mcg by mouth daily. 9 Active Lactobacillus acidophilus (PROBIOTIC ORAL) Take by mouth. Activ e MULTIVITAMIN ORAL Take by mouth. Activ e ferrous sulfate (IRON ORAL) Take by mouth. Act pat docosahexaenoic acid/epa (FISH OIL ORAL) Take by mouth. 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 Not on francis e 11/11/2022 Are you concerned about learning? Not on file 11/11/2022 No 11/11/2022 No 11/11/2022 Digital Access Answer Date Recorded No 12/10/2022 No 12/10/2022 No 12/10/2022 Reliable internet access at home? Not on file 12/10/2022 Device with a working camera? Not on file Sex and Gender Information Value Date Recorded Sex Assigned at Not on file Legal Sex Male 4:00 PM EDT Gender Identity Not on file Sexual Orientation Not on file Last Filed Vital Signs Vital Sign Reading Time Taken Comments Blood Pressure 123/72 10/12/2020 11:28 AM EDT Pulse 68 10/12/2020 11:28 AM EDT Temperature 36.8 C (98.2 F) 10/12/2020 11:28 AM EDT Respiratory Rate - - Oxygen Saturation 97% 10/12/2020 11: 28 AM EDT Inhaled Oxygen Concentration - - Weight 71.6 kg (157 lb 12.8 oz) 021 11:28 AM EDT Height 168.9 cm (5' 6.5 ) 08/09/2018 1:52 PM EST Body Mass Index 25.09 08/09/2018 1:52 PM EST Plan of Treatment Health Maintenance Due Date Last Done Comments Adult Td,Tdap Booster 1970 LIPID PANEL 1970 DEPRESSION SCREENING 1982 SMOKING Hx and SMOKELESS TOBACCO SCREENING 1983 HEPATITIS C SCREENING 01/21/1988 HIV ONE-TIME SCREENING (18-6 5 YEARS) 01/21/1988 COLOGUARD 2015 COLONOSCOPY 2015 COLORECTAL CANCER SCREENING 2015 FIT TEST 2015 FOBT 2015 SIGMOIDOSCOPY 2015 VIRTUAL COLONOSCOPY 2015 PNEUMOCOCCAL VACCINES (50+ years) (1 of 1 - PCV) 01/21/2020 ZOSTER VACCINES (1 of 2) 01/21/2020 INFLUENZA VACCINE (#1) 2025 4, 05/03/2013 COVID-19 VACCINE (1 - 2024-2 6 season) 2025 RSV VACCINE (1 - 1-dose 75+ series) 2045 HEPATITIS A VACCINES Aged Out No long er eligible based on patient's age to complete this topic HIB VACCINES Aged Out No longer eligi ble based on patient's age to complete this topic MENINGOCOCCAL VACCINES (ACWY) Aged Out No longer eligible based on patient's age to complete this topic MENINGOCOCCAL VACCINES (B) Aged Out N o longer eligible based on patient's age to complete this topic Medical Devices [place] [id number] [facility] HMO POS [employer] [facility] HMO POS Member Subscriber Plan / Payer (Ef fective 2013-Present) Name:Rakan Sanon Relation to Subscriber:Spouse Name:CHRISTINE SANON Date of :1970 (Home) Address: [address] [place] Payer ID:[id number] ([facility]) Type:HMO Address: [address] [place] [id number] [address] [place] [facility] HMO POS Care Teams Pinsetter Mechanic Helper Relationship Specialty Start Date End Date Jana Sandy MD [address] [facility] Family Medicine & [place] [address] PCP - General Internal Medicine 02/15/18 Additional Source Comments The information contained in this document represents components of the legal health record. It is not the complete legal health record.[facility]
--- OUTSIDE RECORDS SUMMARY | 2025-06-10 18:52 | XMS_ITS | Encounter Summary ---
Author Organization [facility] Address [address] [place] [phone] Phone Care Team Providers Care Mail Delivery Supervisor Name Role Phone Jana Sandy MD Primary Care Provider + Encounter Details Date Type Department Care Team (Late st Contact Info) Description 07/20/2018 Procedure Pass [facility] Imaging [address] [place] [address] Social History Tobacco Use Types Packs/Day Years Used Date Smoking Tobacco: Former Smokeless Tobacco: Never Sex and Gender Information Value Date Recorded Sex Assigned at Not on file Legal Sex Male 4:00 PM EDT Gender Identity Not on file Sexual Orientation Not on file documented as of this encounter Plan of Treatment Not on file documented as of this encounter Visit Diagnoses Not on filedocumented in this encounter Care Teams Mail Delivery Supervisor Relationship Specialty Start Date End Date Jana Sandy MD [address] [place] [address] Family Medicine & [place] [address] PCP - General Internal Medicine 02/15/18 documented as of this encounter Additional Source Comments The information contained in this document represents components of the legal health record. It is not the complete legal health record.[facility]
== END 2025-06-10 15:44 | disposition home or self-care (01) ==
LOC: HO.HGI 15:12
PROVIDERS: PCP Internal Medicine; Visit Provider Nurse Practitioner
DX: K59.04 Chronic idiopathic constipation (principal); K59.9 Functional intestinal disorder, unspecified; K21.9 Gastro-esophageal reflux disease without esophagitis
CPT/HCPCS: 99213

== ENCOUNTER → 2025-06-10 15:12 | Outpatient (BNVA) | payer MEDICARE, SELFPAY | PROVIDERS: PCP Internal Medicine; Visit Provider Nurse Practitioner | DX: K59.04 Chronic idiopathic constipation (principal); K31.84 Gastroparesis; K21.9 Gastro-esophageal reflux disease without esophagitis; K59.9 Functional intestinal disorder, unspecified; G20.A1 Parkinson's disease without dyskinesia, without mention of fluctuations | CPT/HCPCS: 99212 ==